=== PATIENT | female | born 1985 | race Caucasian/White ===

== ENCOUNTER 2020-06-28 12:33 | Emergency (ER) | payer BC, SELFPAY ==
[2020-06-28] VITALS (12 sets, daily range): BP systolic 118–135; BP diastolic 73–91; PULSE 75–99; RESP 11–25; TEMP 36.2; O2SAT 97–100
--- NOTE | ~2020-06-28 | US_ITS ---
EXAMINATION: US OB <= 14 weeks fetus DATE: 06/28/2020 13:58 INDICATION: Nausea, vomiting and cramping. TECHNIQUE: Real-time transabdominal obstetric ultrasound. FINDINGS: No prior studies for comparison. The uterus measures 13.7 x 5.9 x 2.3 cm. There is an intrauterine gestational sac, with pole id entified. The crown rump length measures 6.4 cm, which correlates with a estimated gestational age o f 12 weeks 6 days. heart tones are identified measuring 158 BPM. The ovaries are normal. IMPRESSION: 1. SL IUP with an EGA of 12 weeks, 6 days (EDC by current ultrasound of 01/04/2021). Reviewed, dictated and finalized at location B. IMPRESSION: 1. SL IUP with an EGA of 12 weeks, 6 days (EDC by current ultrasound of 021).
[2020-06-28 14:01] LABS: Basophils Percent Auto 0.1 % (0.2-1.2); Eosinophils Percent Auto 0.3 % (0-4.4); Hematocrit 40.9 % (37.0-47.0); Hemoglobin 13.4 g/dL (12.0-15.0); Immature Granulocyte Absolute 0.05 K/mm3 (0.00-0.031); Immature Granulocyte Percent A 0.3 % (0-0.5); Lymphocytes Percent Auto 17.6 % (18.3-44.2); Mean Corpuscular HGB Conc 32.8 g/dl (32-36); Mean Corpuscular Hemoglobin 26.9 pg (26-34); Mean Corpuscular Volume 82.1 fl (80-100); Mean Platelet Volume 10.3 fl (7.4-10.4); Monocytes Absolute Auto 0.7 K/mm3 (0.1-0.6); Monocytes Percent Auto 4.9 % (2.6-8.5); Neutrophils Absolute Auto 11.3 K/mm3 (1.3-6.7); Neutrophils Percent Auto 76.8 % (45.5-73.1); Platelet Count Result 390 k/mm3 (150-375); Red Blood Count 4.98 M/mm3 (4.2-5.4); Red Cell Distribution Width 14.8 % (11.5-14.5); White Blood Count 14.7 K/mm3 (4.5-10.0)
[2020-06-28] MEDS: METOCLOPRAMIDE HCL INJ 10 MG/2 ML VIAL IV PUSH (14:01)
[2020-06-28] MEDS: DEXTROSE 5%/0.9% SOD CHL 1,000 ML 999 ML IV CONT (14:01)
[2020-06-28 14:13] LABS: Alanine Aminotransferase 13 U/L (4-35); Albumin Level 4.2 g/dL (3.5-5.1); Alkaline Phosphatase 111 U/L (38-126); Anion Gap 9 mmol/L (8-16); Aspartate Amino Transferase 24 U/L (14-36); Bilirubin,Total 0.4 mg/dL (0.2-1.3); Blood Urea Nitrogen 10 mg/dL (7-17); Calcium 9.3 mg/dL (8.4-10.2); Carbon Dioxide 23 mmol/L (22-30); Chloride 105 mmol/L (98-107); Estimated CRCL calculation 113 ml/min; Estimated Glomerular Filt Rate > 60; Glucose 85 mg/dL (65-105); Potassium 3.8 mmol/L (3.4-5.0); Sodium 137 mmol/L (137-145)
[2020-06-28 14:43] LABS: Thyroid Stimulating Hormone 0.846 uIU/mL (0.465-4.680)
[2020-06-28 14:46] LABS: Add Urine Microscopic? YES; Appearance Urine Cloudy (Clear); Bilirubin Urine Negative (Negative); Blood Urine Negative (Negative); Color Urine Amber (Yellow); Glucose Urine UA Negative (Negative); Ketones Urine 2+ mg/dL (Negative); Leukocyte Esterase Ur 2+ LEU/UL (Negative); Mucus Urine Heavy /lpf; Nitrate Urine Negative (Negative); Protein Urine 2+ mg/dL (Negative); Squamous Epithelial Cell Urine Many /hpf (Few); WBC Urine 31-50 /hpf
--- NOTE | 2020-06-28 15:10 | ED.GENADULT ---
HPI - General Adult General Chief complaint: Nausea/Vomiting/Diarrhea Stated complaint: n/v/12 weeks Time Seen by Provider: 06/28/20 12:41 Source: patient Mode of arrival: ambulatory Limitations: no limitations History of Present Illness HPI narrative: Patient presents with chief complaint of nausea and vomiting that began on Wednesday. Patient states she is a IVF patient and is 12 weeks . Patient is a G2, P1. She states her CORPORATE AUDITOR is Dr. Woods. Patient reports that beginning Wednesday she had nausea and multiple episodes of vomiting. Patient states she has not had issues with vomiting throughout her first trimester. Patient reports some mild cramping over her lower pelvic area. She denies any vaginal bleeding or contraction-like symptoms. Patient denies fever, chills, cough, shortness of breath, headache. Patient denies any urinary symptoms or abdominal pain. Related Data Home Medications Medication Instructions Recorded Confirmed ergocalciferol (vitamin D2) 06/28/20 levothyroxine 06/28/20 metformin mg PO 06/28/20 [id number] fum-folic [id number] pkg PO 06/28/20 [Daily ] Allergies Allergy/AdvReac Type Severity Reaction Status Date / Time cephalexin Allergy Intermediate Rash Verified 06/28/20 12:54 Review of Systems Review of Systems: Narrative: CONSTITUTIONAL: Denies fever, chills, or sweats. EYES: Denies visual changes, redness, or discharge. ENT: Denies rhinorrhea, congestion, sore throat, or otalgia. CARDIOVASCULAR: Denies chest pain, palpitations, or edema. RESPIRATORY: Denies cough or dyspnea. GASTROINTESTINAL: Reports nausea and vomiting denies abdominal pain or diarrhea. GENITOURINARY: Denies dysuria or hematuria. SKIN: Denies rash or itching. MUSCULOSKELETAL: Denies back pain, joint pain, or myalgia. NEUROLOGIC: Denies headache, numbness, dizziness, or weakness. PSYCHIATRIC: Denies anxiety or depression. Exam Narrative: Exam Narrative: GENERAL: Well-appearing, well-nourished. Not ill or toxic. HEAD: Normocephalic, atraumatic. EYES: PERRLA and EOMI. ENT: Nares clear, no rhinorrhea or epistaxis. Mucous membranes moist. Oropharynx without tonsillar hypertrophy exudate or other lesions. Bilateral TMs pearly villanueva nonbulging NECK: Supple. No adenopathy or masses. No vertebral tenderness or loss of ROM. CHEST: Clear to auscultation. No respiratory distress. No wheezes rales or rhonchi HEART: Regular rate and rhythm. Normal peripheral pulses. ABDOMEN: Soft, nontender, nondistended, normal active bowel sounds. No bruises noted. EXTREMITIES: No acute changes in ROM. No edema. SKIN: Warm, dry, no rash. NEURO: No focal deficits. Alert and oriented x3. PSYCH: Normal mood and affect. Course Vital Signs Vital signs: Vital Signs Temperature 97.1 F L 06/28/20 12:42 Pulse Rate 95 06/28/20 12:42 Respiratory Rate 16 06/28/20 12:42 Blood Pressure 135/91 H 06/28/20 12:42 Pulse Oximetry 100 06/28/20 12:42 Temperature 97.1 F L 06/28/20 12:42 Pulse Rate 86 06/28/20 14:02 Respiratory Rate 16 06/28/20 14:02 Blood Pressure 120/81 06/28/20 13:31 Pulse Oximetry 98 06/28/20 14:02 Medical Decision Making [facility] Narrative Medical decision making narrative: Patient not ill or toxic in appearance. Patient has not been having persistent vomiting emergency department. Patient has been able to ambulate without difficulty. Her vital signs are stable. Patient's ultrasound is normal. Patient does not have vaginal bleeding cramping or signs of contractions. Patient will be treated for urinary tract infection and has been hydrated. Patient will prescribe Reglan. Patient instructed to follow-up with her CORPORATE AUDITOR for your recheck to make sure urinary tract infection has cleared. Patient strict to return to emergency department she has any emergent symptoms. Vital Signs Vital Signs: Vital Signs Temperature 97.1 F L 06/28/20 12:42 Pulse Rate 95 06/28/20 12
== END 2020-06-28 15:54 | disposition home or self-care (01) ==
PROVIDERS: Physician Assistant; Emergency Provider Emergency Medicine; PCP Obstetrics & Gynecology Gynecology
DX: O23.41 Unspecified infection of urinary tract in pregnancy, first trimester (principal); Z3A.12 12 weeks gestation of pregnancy
CPT/HCPCS: 36415; 76801; 80053; 81001; 84443; 85025; 87086; 96361; 96374; 99284; J2765; J7042

== ENCOUNTER 2020-08-28 04:47 | Emergency (ER) | payer BC, SELFPAY ==
[2020-08-28 04:51] VITALS: BP 120/68; PULSE 88; RESP 16; TEMP 36.7; O2SAT 99
--- NOTE | 2020-08-28 05:01 | ED.URI ---
HPI - URI/Sore Throat General Chief Complaint: Upper Respiratory Infection Stated Complaint: sinus problem and now has ear pain Time Seen by Provider: 08/28/20 05:00 Source: patient Mode of arrival: ambulatory Limitations: no limitations History of Present Illness HPI Narrative: Patient is a 34-year-old female complaining of left ear pain, felt something pop, after she blew her nose this morning. Patient states that she has been having sinus congestion for the past few days. Patient denies any trauma to the ear. Patient denies any headache, ear discharge, cough, fever or chills. Patient states that she is . Related Data Home Medications Medication Instructions Recorded Confirmed ergocalciferol (vitamin D2) 06/28/20 08/27/20 levothyroxine 06/28/20 08/27/20 [id number] fum-folic ac-om3 pkg PO 06/28/20 08/27/20 [Daily ] aspirin 81 mg chewable tablet 81 mg PO DAILY 07/09/20 08/27/20 Allergies Allergy/AdvReac Type Severity Reaction Status Date / Time cephalexin Allergy Intermediate Rash Verified 08/27/20 09:27 Review of Systems Review of Systems: All systems reviewed & are unremarkable except as noted in HPI and below PMFSH Past Medical History Medical History Environmental allergies History of vaginal delivery Hypothyroidism PCOS (polycystic ovarian syndrome) Surgical History Surgical History History of placement of ear tubes Hx of tonsillectomy Family History Family History Grandparent Breast cancer Acute myocardial infarction Social History Social History Smoking status: Never smoker Smoking end date: 04/05/12 Alcohol intake: former Substance use: never Exam Const: General: healthy appearing, no acute distress and alert Orientation/consciousness: patient oriented x3 HENMT: Head: normal to inspection Ears: TM normal on the right, EAC's normal and TM abnormal (Tympanic membrane intact) dull and with fluid behind the TM General nose exam: Nasal discharge present and Other nasal findings present (Erythematous boggy swollen nasal turbinates) Face and sinus: normal facial exam and no sinus tenderness Mouth: Yes Normal oral and palatal mucosa present and Yes moist mucous membranes Eyes: Conjunctivae: conjunctivae normal Neck: Neck: normal visual inspection Resp: Effort & Inspection: normal respiratory effort Psych: Mental Status: mental status grossly normal Affect: normal affect Attitude: cooperative Course Vital Signs Vital signs: Vital Signs Temperature 36.7 C 08/28/20 04:51 Pulse Rate 88 08/28/20 04:51 Respiratory Rate 16 08/28/20 04:51 Blood Pressure 120/68 08/28/20 04:51 Pulse Oximetry 99 08/28/20 04:51 Temperature 36.7 C 08/28/20 04:51 Pulse Rate 88 08/28/20 04:51 Respiratory Rate 16 08/28/20 04:51 Blood Pressure 120/68 08/28/20 04:51 Pulse Oximetry 99 08/28/20 04:51 MDM - URI/Sore Throat Differential Diagnosis Differential diagnosis: Likely upper respiratory infection, sinusitis and viral infection Discharge Plan Discharge Clinical Impression: Acute pain of left ear Patient Disposition: Home, Self-Care Condition: Improved Instructions: Barotrauma (ED) Additional Instructions: Follow-up with your SECOND [employer]IDE FARE COLLECTOR Prescriptions: No Action aspirin 81 mg tablet,chewable 81 mg PO DAILY RF: 0 ondansetron HCl [Zofran] 4 mg tablet 4 mg PO Q6H PRN (Reason: nausea and vomiting) Qty: 2 RF: 0 levothyroxine 75 mcg tablet RF: 0 ergocalciferol (vitamin D2) 1,250 mcg (50,000 unit) capsule RF: 0 Daily [phone] mg-mcg-mg Combo Pack PO RF: 0 Follow-up/Referrals: CAROLE,WILLIAM Campbell NP-C [Primary Care Provider] - 08/29/20 Time of Dispositi
--- NOTE | 2020-08-28 05:09 | PC.NURSE ---
Pt presents to ED with complaints of upper respiratory infection and left ear pain. Pt states she has not been feeling well for a few days. Pt rates pain to ear 8/. Pain last treated with tylenol at 2300 and ibuprofen at 0200. States she was blowing her nose when suddenly her left ear popped and she can no longer hear; denies drainage from ear. Pt is alert and oriented t x4 and in no obvious distress with spouse at bedside. Vitals anthony stable and pt in no obvious distress at this time. Pt advised to press call button for assistance.
--- NOTE | 2020-08-28 05:18 | PC.NURSE ---
EDMD presented to bedside.
--- NOTE | 2020-08-28 05:20 | PC.NURSE ---
Pt provided specimen cup for urine.
[2020-08-28 05:42] VITALS: BP 120/68; PULSE 88; RESP 16; TEMP 36.7; O2SAT 98
[2020-08-28 05:45] VITALS: O2SAT 98
[2020-08-28 05:46] VITALS: BP 120/68; PULSE 88; RESP 16; O2SAT 98
== END 2020-08-28 05:47 | disposition home or self-care (01) ==
PROVIDERS: Emergency Provider Emergency Medicine; PCP Nurse Practitioner
DX: H92.02 Otalgia, left ear (principal); E03.9 Hypothyroidism, unspecified
CPT/HCPCS: 99281

== ENCOUNTER 2020-11-23 11:52 | Outpatient (CLI) | payer BC, SELFPAY ==
--- NOTE | ~2020-11-23 | US_ITS ---
US OB limited DATE: 11/23/2020 12:44 INDICATION: In vitro fertilization . TECHNIQUE: Real-time imaging and Doppler analysis COMPARISON: 06/28/2020 obstetrical ultrasound FINDINGS: The fetus is in vertex presentation, longitudinal lie. heart rate of 136 bpm The placenta is fundal. There is a subjectively normal amount of amniotic fluid. Amniotic fluid index measures 12.8 cm. (5th percentile RAYMUNDO: 8.3 cm; 95th percentile RAYMUNDO: 24.5 cm.) IMPRESSION: Amniotic fluid index measures 12.8 cm. (5th percentile RAYMUNDO: 8.3 cm; 95th percentile RAYMUNDO: 24.5 cm.) Reviewed, dictated and finalized at Location A. Reviewed, dictated and finalized at location A.
[2020-11-23 12:29] VITALS: BP 113/69; PULSE 76
== END 2020-11-23 11:53 | disposition home or self-care (01) ==
PROVIDERS: Visit Provider Obstetrics & Gynecology
DX: O09.819 Supervision of pregnancy resulting from assisted reproductive technology, unspecified trimester (principal); Z3A.00 Weeks of gestation of pregnancy not specified
CPT/HCPCS: 59025; 76815

== ENCOUNTER 2021-01-07 11:24 | Outpatient (RCR) | payer BC, SELFPAY ==
[2020-12-21 10:00] VITALS: BP 111/75; PULSE 95
[2020-12-28 13:19] VITALS: BP 106/71; PULSE 75
[2021-01-04 14:52] VITALS: BP 106/71; PULSE 75
--- NOTE | ~2021-01-07 | US_ITS ---
EXAMINATION: US OB limited DATE: 11/30/2020 09:33 INDICATION: In vitro fertilization. Assess amniotic fluid index during third trimester . TECHNIQUE: Real-time ultrasound of the pelvis was performed. The interpreting radiologist was not pre sent for the study. COMPARISON: None. FINDINGS: There is a single living fetus in vertex presentation. The placenta is anterior. heart rate is 150 beats per minute (bpm). The amniotic fluid index is 13.7 cm, which is normal (5th%-95%: 8.1-24.8 cm at 34 weeks estimated gestational age). IMPRESSION: 1. Single living fetus in vertex presentation with heart rate of 150 bpm. 2. Normal amniotic fluid index of 13.7 cm. Reviewed, dictated and finalized at location A. IMPRESSION: 1. Single living fetus in vertex presentation with heart rate of 150 bpm . 2. Normal amniotic fluid index of 13.7 cm.
--- NOTE | ~2021-01-07 | US_ITS ---
EXAMINATION: US OB limited EXAM DATE: 12/28/2020 13:10 INDICATION: RAYMUNDO, IVF . 3rd trimester. TECHNIQUE: Pelvic obstetrical transabdominal sonogram was performed by a technologist. There are mu ltiple grayscale and Doppler images available for interpretation. Comparison is made to prior examina tion from 12/21/2020. FINDINGS: There is a single fetus identified in vertex presentation with a heart rate of 141 beats pe r minute. The placenta is located in the anterior position. There is no sonographic evidence of retr oplacental hemorrhage identified. The amniotic fluid index is 17.8 centimeters, which is normal. IMPRESSION: 1. Single fetus in vertex presentation with heart rate 141 beats per minute. 2. Normal RAYMUNDO 17.8 cm. Reviewed, dictated and finalized at location A.
--- NOTE | ~2021-01-07 | US_ITS ---
US OB limited 01/04/2021 13:45 Indication: Evaluate amniotic fluid index. Procedure: High-resolution Limited obstetrical ultrasound Comparison: 12/28/2020 Findings: There is a single living intrauterine in vertex presentation. Placenta is fundal without previa. Amniotic fluid index is normal measuring 17 cm (normal range for gestational age is 7 .2-22.6 cm). heart rate is 121 BPM. Impression: 1: Single living intrauterine in vertex presentation. 2: Normal RAYMUNDO measures 17 cm. Reviewed, dictated and finalized at location A. Impression: 1: Single living intrauterine in vertex presentation. 2: Normal RAYMUNDO measures 17 cm.
--- NOTE | ~2021-01-07 | US_ITS ---
EXAMINATION: US OB limited DATE: 12/21/2020 10:00 INDICATION: Amniotic fluid index assessment, third trimester TECHNIQUE: Real-time ultrasound of the pelvis was performed. The interpreting radiologist was not pre sent for the study. COMPARISON: 11/22/2020 FINDINGS: There is a single living fetus in vertex presentation. The placenta is fundal/anterior. Fet al cardiac activity and movement are noted. heart rate is 121 beats per minute (bpm). The amniotic fluid index is 11.4 cm which is normal. IMPRESSION: 1. Single living fetus in vertex presentation. 2. Normal amniotic fluid index. Reviewed, dictated and finalized at location A.
[2021-01-07 13:41] VITALS: BP 122/82; PULSE 82
--- NOTE | 2021-02-03 16:00 | PM.OBDSVD ---
DS: Admitting Diagnosis Discharge Date Jan 12, 2021. Admitting Diagnosis Medical induction of labor DS: Discharge Diagnosis Discharge Diagnosis (1) Delivery normal: Code(s): O80 - Encounter for full-term uncomplicated delivery Status: Acute (2) Elective induction of labor planned: Status: Acute (3) hemorrhage: Code(s): O72.1 - Other immediate hemorrhage Status: Acute OB - DS: Summary Hospital Course Hospital Course: Patient admitted on Jan 12 for medical induction of labor. She had a spontaneous vaginal delivery complicated by hemorrhage. She did get a currettage which resolved the bleeding. Post she did well. She had asymptomatic anemia. She was started on iron supplement. On day two she was doing well. Ambulating without difficulty. Lochia was mild. Her hemoglobin was 7.3. On day 2 she was doing well. No hypovolemic symptoms. She was doing well and discharged home with discharge precautions on 01/12/2021. OB Procedures : NST and Ultrasound OB Procedures Intrapartum: Spontaneous Vag Delivery OB Procedures: : Curettage and Antibiotics (prophylaxis) Peripartum Data Infant Delivery Method: Natural Vaginal Laceration Description: Vaginal - 1st Degree complications: uterine atony and retained placenta Status at Discharge Functional status at discharge: independent ambulation Time Spent with Patient Time attestation: Total time spent providing and/or coordinating discharge services: Exam Const: General: cooperative Orientation/consciousness: oriented to person, oriented to place and oriented to time HENMT: General nose exam: Normal external nose present Eyes: General: appearance normal, both eyes and all related structures Resp: Effort & Inspection: normal respiratory effort GI: Inspection: normal to inspection : Other: fundus firm nontender below umbilicus Skin: General skin exam: normal color Neuro: General: oriented to person, oriented to place and oriented to time Extrem: General: normal to inspection and no calf tenderness Psych: Appearance: grossly normal Mental Status: mental status grossly normal Discharge Plan Departure Attending Physician: Pepe Amaro Consulting providers: Cyrus Stein Prescriptions: No Action aspirin 81 mg tablet,chewable 81 mg PO DAILY RF: 0 famotidine [Pepcid] 20 mg tablet 20 mg PO DAILY Qty: 14 RF: 0 nitrofurantoin monohyd/m-cryst [Macrobid] 100 mg capsule 100 mg PO Q12H 5 Days Qty: 10 RF: 0 ergocalciferol (vitamin D2) [Vitamin D2] 1,250 mcg (50,000 unit) capsule 1 unit PO DAILY RF: 0 levothyroxine 75 mcg tablet 75 mcg PO DAILY Qty: 30 RF: 1 Discharge Instructions: Pelvic rest for 4-6 weeks. May take over the counter Ibuprofen or Tylenol for pain. Call if saturating more than a pad an hour, leg redness, pain and swelling, temperature>100.4. No strenuous activity.
== END 2021-02-17 09:26 | disposition home or self-care (01) ==
LOC: ANHOBOP 11:24
PROVIDERS: Referring Provider Obstetrics & Gynecology; Visit Provider Obstetrics & Gynecology
DX: O99.283 Endocrine, nutritional and metabolic diseases complicating pregnancy, third trimester (principal); E03.9 Hypothyroidism, unspecified; Z3A.34 34 weeks gestation of pregnancy
CPT/HCPCS: 59025; 76815

== ENCOUNTER 2021-01-10 12:11 | Inpatient (IN) | payer BC, SELFPAY ==
[2021-01-10] VITALS (137 sets, daily range): BP systolic 88–217; BP diastolic 17–186; PULSE 58–221; TEMP 36.1–36.9; O2SAT 89–100; BMI 33.7
--- NOTE | 2021-01-10 12:57 | LDADM ---
This patient, Paulette Cisneros, was admitted to Labor/Delivery/Recovery 107 on 01/10/21 at 12:11. Plans for labor, pain management and were discussed with patient. Patient/family oriented to hospital policies and general routines including ID bracelet, bed and alarms, visiting hours, pain management, procedures, bathroom and other care routines, personal items, smoking policy, room service/diet and guest tray routines, infant security routines, and visiting hours. Patient/Family are encouraged to report perceived risks to care and to ask questions if they do not understand what they are told or what they should do. See OBIX for further documentation.
[2021-01-10 13:04] LABS: Basophils Percent Auto 0.2 % (0.2-1.2); Eosinophils Absolute Auto 0.1 K/mm3 (0-0.3); Eosinophils Percent Auto 0.6 % (0-4.4); Hematocrit 33.9 % (37.0-47.0); Hemoglobin 10.8 g/dL (12.0-15.0); Immature Granulocyte Absolute 0.05 K/mm3 (0.00-0.031); Immature Granulocyte Percent A 0.4 % (0-0.5); Lymphocytes Absolute Auto 2.46 K/mm3 (0.9-3.2); Lymphocytes Percent Auto 19.9 % (18.3-44.2); Mean Corpuscular HGB Conc 31.9 g/dl (32-36); Mean Corpuscular Hemoglobin 24.6 pg (26-34); Mean Corpuscular Volume 77.2 fl (80-100); Mean Platelet Volume 9.7 fl (7.4-10.4); Monocytes Absolute Auto 0.7 K/mm3 (0.1-0.6); Monocytes Percent Auto 5.7 % (2.6-8.5); Neutrophils Absolute Auto 9.1 K/mm3 (1.3-6.7); Neutrophils Percent Auto 73.2 % (45.5-73.1); Platelet Count Result 369 k/mm3 (150-375); Red Blood Count 4.39 M/mm3 (4.2-5.4); Red Cell Distribution Width 15.4 % (11.5-14.5); White Blood Count 12.4 K/mm3 (4.5-10.0)
[2021-01-10] MEDS: OXYTOCIN 30 UNITS/NS 500 ML 30 UNITS/500 ML BAG IV CONT (13:17)
[2021-01-10] MEDS: LACTATED RINGERS 1,000 ML 125 ML IV CONT ×2 (13:18→14:05)
--- NOTE | 2021-01-10 15:16 | WPDANESEPPF ---
Anes - Initial Pre Proc Eval Date/Time: 01/10/21 15:16 Surgeon: Pepe Amaro MD Pre Op Diagnosis: Induction of Labor Patient Data Age: 35 Gender: F Height: 1.65 m Weight: 92 kg Last Vital Signs Temp 36.1 C L 01/10/21 14:02 Pulse 83 01/10/21 15:01 BP 111/73 01/10/21 15:01 Pulse Ox 100 01/10/21 15:14 Allergies Allergy/AdvReac Type Severity Reaction Status Date / Time No Known Allergies Allergy Verified 01/10/21 13:04 Home Medications Medication Instructions Recorded Confirmed Type ergocalciferol (vitamin D2) 1 unit PO DAILY 06/28/20 01/10/21 History [Vitamin D2] levothyroxine 75 mcg PO DAILY 06/28/20 01/10/21 History aspirin 81 mg chewable tablet 81 mg PO DAILY 07/09/20 01/10/21 History Laboratory Tests 01/10/21 01/10/21 01/10/21 12:37 12:37 12:37 WBC 12.4 K/mm3 H K/mm3 (4.5-10.0) RBC 4.39 M/mm3 M/mm3 (4.2-5.4) Hgb 10.8 g/dL L g/dL (12.0-15.0) Hct 33.9 % L % (37.0-47.0) MCV 77.2 fl L fl (80-100) MCH 24.6 pg L pg (26-34) MCHC 31.9 g/dl L g/dl (32-36) RDW 15.4 % H % (11.5-14.5) Plt Count 369 k/mm3 k/mm3 (150-375) MPV 9.7 fl fl (7.4-10.4) Immature Gran % (Auto) 0.4 % % (0-0.5) Neut % (Auto) 73.2 % H % (45.5-73.1) Lymph % (Auto) 19.9 % % (18.3-44.2) Tama % (Auto) 5.7 % % (2.6-8.5) Eos % (Auto) 0.6 % % (0-4.4) Baso % (Auto) 0.2 % % (0.2-1.2) Lymph # (Auto) 2.46 K/mm3 K/mm3 (0.9-3.2) Tama # (Auto) 0.7 K/mm3 H K/mm3 (0.1-0.6) Eos # (Auto) 0.1 K/mm3 K/mm3 (0-0.3) Baso # (Auto) 0.0 K/mm3 K/mm3 (0.0-0.1) Abs Immat Gran (auto) 0.05 K/mm3 H K/mm3 (0.00-0.031) Absolute Neuts (auto) 9.1 K/mm3 H K/mm3 (1.3-6.7) Absolute Nucleated RBC 0.0 K/mm3 K/mm3 (0.0-0.012) Nucleated RBC % 0.0 % % (0.0-0.2) RPR Pending Blood Type B Positive Antibody Screen Negative Patient hx anesthesia problems: none Family hx anesthesia problems: none Results Review: All pre-operative results and documents have been reviewed as part of the pre-operative evaluation. [facility] Past Medical History Medical History Environmental allergies History of vaginal delivery Hypothyroidism PCOS (polycystic ovarian syndrome) Surgical History Surgical History History of placement of ear tubes Hx of tonsillectomy Family History Family History Grandparent Breast cancer Acute myocardial infarction Social History Social History Smoking status: Former smoker Smoking end date: 04/05/12 Alcohol intake: former Alcohol use details: Not since Substance use: never Spiritual care concerns: No Anes - Eval Final PreProcedure Day of Procedure 01/10/21 15:16 Patient weight: obese Heart: regular rate and rhythm Lungs: clear to auscultation Neurological: alert and oriented ASA classification: II Emergent: no Anesthetic plan: proceed Anesthesia type and monitoring: regional epidural and standard monitoring Results Review: All pre-operative results and documents have been reviewed as part of the pre-operative evaluation. Informed Consent: The patient's anesthetic plan and its attendant risks and benefits were discussed with the patient/family/POA. Questions were solicited and answers provided to the satisfaction of the patient/family/POA.
--- NOTE | 2021-01-10 15:50 | PM.IMHP ---
H&P: HPI History of Present Illness Date/Time: 01/10/21 15:50 40 w 1d based on EDC by IVF conception. PNC significant for IVF conception. Labs reviewed. GBS neg. Chief Complaint: Induction of labor Review of Systems Review of Systems: All systems reviewed & are unremarkable except as noted in HPI and below Constitutional: Constitutional: Reports no additional constitutional complaints and Denies headache(s) Eyes: Eyes: Denies spots in vision ENT: Reports system reviewed and no additional complaints, except as documented and Denies headache(s) Cardiovascular: Cardiovascular: Denies chest pain and Denies dyspnea Respiratory: Respiratory: Denies dyspnea Gastrointestinal: Gastrointestinal: Reports no additional gastrointestinal complaints Genitourinary: Genitourinary: Reports amenorrhea Musculoskeletal: Musculoskeletal: Reports no additional musculoskeletal complaints Integumentary/Breasts: Skin/Breast: Denies breast mass and Denies rash Neurologic: Denies headache(s) Psychiatric: Psychiatric: Reports no additional psychiatric complaints PMFSH Past Medical History Medical History Environmental allergies History of vaginal delivery Hypothyroidism PCOS (polycystic ovarian syndrome) Surgical History Surgical History History of placement of ear tubes Hx of tonsillectomy Family History Family History Grandparent Breast cancer Acute myocardial infarction Social History Social History Smoking status: Former smoker Smoking end date: 04/05/12 Alcohol intake: former Alcohol use details: Not since Substance use: never Spiritual care concerns: No Meds Home Medications and Allergies Home Medications Medication Instructions Recorded Confirmed Type ergocalciferol (vitamin D2) 1 unit PO DAILY 06/28/20 01/10/21 History [Vitamin D2] levothyroxine 75 mcg PO DAILY 06/28/20 01/10/21 History aspirin 81 mg chewable tablet 81 mg PO DAILY 07/09/20 01/10/21 History Allergies Allergy/AdvReac Type Severity Reaction Status Date / Time No Known Allergies Allergy Verified 01/10/21 13:04 Vital Signs Vital Signs - 24 hr 01/10/21 12:36 01/10/21 12:46 01/10/21 13:01 Temperature Pulse Rate 102 H 79 86 Blood Pressure 119/83 127/76 117/79 Pulse Oximetry 01/10/21 13:16 01/10/21 13:25 01/10/21 13:31 Temperature 97.5 F L Pulse Rate 81 72 Blood Pressure 119/81 121/71 Pulse Oximetry 01/10/21 13:46 01/10/21 13:52 01/10/21 13:53 Temperature Pulse Rate 70 78 Blood Pressure 130/73 135/86 Pulse Oximetry 100 01/10/21 13:55 01/10/21 13:57 01/10/21 13:59 Temperature Pulse Rate 82 84 83 Blood Pressure 133/80 131/83 121/78 Pulse Oximetry 100 01/10/21 14:01 01/10/21 14:02 01/10/21 14:03 Temperature 96.9 F L Pulse Rate 89 87 Blood Pressure 155/93 H 123/78 Pulse Oximetry 100 01/10/21 14:05 01/10/21 14:07 01/10/21 14:09 Temperature Pulse Rate 86 94 83 Blood Pressure 136/88 113/72 115/67 Pulse Oximetry 100 01/10/21 14:11 01/10/21 14:12 01/10/21 14:14 Temperature Pulse Rate 70 77 Blood Pressure 100/64 89/68 L Pulse Oximetry 100 01/10/21 14:15 01/10/21 14:17 01/10/21 14:19 Temperature Pulse Rate 95 76 66 Blood Pressure 109/64 109/63 119/64 Pulse Oximetry 99 01/10/21 14:21 01/10/21 14:22 01/10/21 14:23 Temperature Pulse Rate 65 81 Blood Pressure 115/65 114/69 Pulse Oximetry 99 01/10/21 14:25 01/10/21 14:27 01/10/21 14:29 Temperature Pulse Rate 89 64 84 Blood Pressure 113/69 117/63 112/66 Pulse Oximetry 100 01/10/21 14:30 01/10/21 14:31 01/10/21 14:33 Temperature Pulse Rate 66 68 Blood Pressure 113/66 115/70 Pulse Oximetry 100 10/0
--- NOTE | 2021-01-10 15:59 | P.PNOB_ITS ---
OB - PN: Subj Subjective Date/time seen: 01/10/21 1330 fht 145 Cat 1, occasional variable irreg ctx AROM clear 1330 cervix 3/-2. OB - PN: Obj Data Labs CBC & Chem 7: 01/10/21 12:37 Labs: Laboratory Results - last 24 hr 01/10/21 01/10/21 12:37 12:37 WBC 12.4 H RBC 4.39 Hgb 10.8 L Hct 33.9 L MCV 77.2 L MCH 24.6 L MCHC 31.9 L RDW 15.4 H Plt Count 369 MPV 9.7 Immature Gran % (Auto) 0.4 Neut % (Auto) 73.2 H Lymph % (Auto) 19.9 Caroline % (Auto) 5.7 Eos % (Auto) 0.6 Baso % (Auto) 0.2 Lymph # (Auto) 2.46 Caroline # (Auto) 0.7 H Eos # (Auto) 0.1 Baso # (Auto) 0.0 Abs Immat Gran (auto) 0.05 H Absolute Neuts (auto) 9.1 H Absolute Nucleated RBC 0.0 Nucleated RBC % 0.0 Blood Type B Positive Antibody Screen Negative OB - PN A/P Time Spent With Patient Time: Total time spent is greater than 50% in coordination of care (as documented) at patient's floor/unit and/or counseling patient:
--- NOTE | 2021-01-10 17:06 | P.PCNOB_ITS ---
OB - Delivery Note Procedure Delivery date: 01/10/21 Procedure: spontaneous vaginal delivery Intrapartal events: None Induction method: none and per pitocin protocol Delivery augmentation: rupture of membranes Delivery monitor: external FHT and internal uterine Route of delivery: Laceration Description: Vaginal - 1st Degree Delivery repair: vicryl (3.0 vicryl) Specimen: No Quantitative Blood Loss (ml): 200 Anesthesia type: Epidural Disposition: floor Complications: None Narrative: Patient admitted for [facility] elective on 01/10/21. She was started on Pitocin per induction protocol. She had assisted rupture of membranes at 1330 clear. She was 3 cm. She progressed to active labor. She requested epidural which was placed. She did have episode of recurrent moderate early decels and she dilated rapidly from 7-9. The repetitive variables improved. She did pushed approximately 3-4 times, late decels noted. 's head delivered, in MARGE presentation. Tight nuchal cord surgically reduced. The rest of the infant was delivered. Nose mouth suctioned with bulb. Terminal meconium noted. Infant placed on maternal abdomen, crying with massage. Placenta delivered spontaneous and intact. She sustained a first degree vaginal laceration at introitus and repaired with 3.0 vicryl. EBL 200cc. Sponge count correct. Patient tolerated procedure well. [place] Baby Date of : 01/10/21 Time of : 16:39 Weeks of gestation at delivery: 40 Infant gender: Male Weight (pounds): 7 Weight (ounces): 7 presentation: vertex position: Left Occiput Anterior Placenta delivery description: Spontaneous cord vessel description: 3 Vessels, Nuchal Cord and Tight score one minute: 8 score five minutes: 9
[2021-01-10] MEDS: OXYTOCIN 30 UNITS/NS 500 ML 30 UNITS/500 ML BAG 125 UNITS IV CONT (18:45)
[2021-01-10] MEDS: LACTATED RINGERS 1,000 ML 200 ML IV CONT (18:45)
[2021-01-10] MEDS: miSOPROStol 200 MCG TABLET 800 MCG RECTAL (18:49)
[2021-01-10 19:18] LABS: Basophils Percent Auto 0.1 % (0.2-1.2); Eosinophils Percent Auto 0.2 % (0-4.4); Hematocrit 32.7 % (37.0-47.0); Hemoglobin 10.3 g/dL (12.0-15.0); Immature Granulocyte Absolute 0.09 K/mm3 (0.00-0.031); Immature Granulocyte Percent A 0.4 % (0-0.5); Lymphocytes Absolute Auto 2.38 K/mm3 (0.9-3.2); Lymphocytes Percent Auto 11.7 % (18.3-44.2); Mean Corpuscular HGB Conc 31.5 g/dl (32-36); Mean Corpuscular Hemoglobin 24.8 pg (26-34); Mean Corpuscular Volume 78.6 fl (80-100); Mean Platelet Volume 9.6 fl (7.4-10.4); Monocytes Absolute Auto 1.1 K/mm3 (0.1-0.6); Monocytes Percent Auto 5.6 % (2.6-8.5); Neutrophils Absolute Auto 16.7 K/mm3 (1.3-6.7); Platelet Count Result 377 k/mm3 (150-375); Red Blood Count 4.16 M/mm3 (4.2-5.4); Red Cell Distribution Width 15.4 % (11.5-14.5); White Blood Count 20.3 K/mm3 (4.5-10.0)
[2021-01-10] MEDS: METHYLERGONOVINE MALEATE 0.2 MG/ML VIAL IM (19:42)
--- NOTE | 2021-01-10 19:48 | W.PM.PROC2 ---
Procedure Note - Detailed Date of Procedure 01/10/21 Pre-op Diagnosis 1. hemorrhage 2. Retained placenta Post-op Diagnosis same Procedure Performed [place] Surgeon Pepe Amaro MD Anesthesia MAC and local Indications hemorrhage. Patient had approximately 1400cc and the nurse evacuated some clots and placental fragments from the lower uterine segment. I was called. Attempted manual extraction and there was still fragments and an area posterior fundus that felt adherent and could not get it. She continued to have some bleeding. She was recommended for curretage for retained placenta. Discussed the risk of curretage. Discussed risk of need to go to OR if can't stop bleeding. Questions were answered. Patient agreed. She had been given cytotec. CBC and coags drawn and second IV. Findings Small amount of placenta fragment at the fundus Description of Procedure After informed consent, adequate IV sedation was administered. The speculum was inserted. The single tooth tenaculum placed on cervix. Ultrasound was uterus at lower abdomen and the fundus and uterine cavity were visualized. A straight urinary catheter was used to drain bladder. A large currett was passed and small amount of tissue obtained. A finger like segment was curretted from the fundus and the bleeding decreased. The ultrasound did not show any large tissue in fundus. The lower uterine segment mildly. She was given methergin. The cervix was inspected using ring forceps, no laceration noted. There was a small laceration of vaginal tissue near introitus that was bleeding and hemostasis obtained with figure of eight 3.0 vicryl. Uterus firm below umbilicus. There was a small ooze and a vag packing was placed. Patient tolerated procedure well. EBL during procedure approximately 300cc. That would make her total EBL from delivery and procedure 2695cc. T Estimated Blood Loss 300 Drains No Packing Yes (vaginal packing.) Pathology none sent Complications No immediate complications Condition stable Disposition floor
[2021-01-10 19:52] LABS: Partial Thromboplastin Time 27.3 SECONDS (22.3-36.8); Prothrombin Time 12.8 Seconds (11.1-14.7)
[2021-01-10 19:56] LABS: D Dimer 3.46 ug/mL (<0.48)
[2021-01-10 19:58] LABS: Fibrinogen 257 mg/dl (215-510)
[2021-01-10] MEDS: ceFAZolin 2 GM/D5W 50 ML 2 GM/50 ML BAG IVPB (20:17)
[2021-01-10] MEDS: ONDANSETRON INJ 4 MG/2 ML VIAL IV PUSH (21:04)
[2021-01-10] MEDS: TRANEXAMIC ACID 1,000MG/ISO100 1,000 MG/100 ML BAG 200 MG IVPB ×2 (21:11→22:55)
[2021-01-11 00:13] VITALS: BP 111/67; PULSE 75; RESP 16; TEMP 36.6; O2SAT 98
[2021-01-11] MEDS: ACETAMINOPHEN 325 MG TABLET 650 MG PO (01:54)
[2021-01-11] MEDS: ceFAZolin 2 GM/D5W 50 ML 2 GM/50 ML BAG IVPB ×2 (04:01→12:21)
[2021-01-11 04:13] VITALS: BP 103/63; PULSE 78; RESP 16; TEMP 36.8; O2SAT 99
[2021-01-11 06:09] LABS: Hematocrit 22.6 % (37.0-47.0); Hemoglobin 7.3 g/dL (12.0-15.0)
--- NOTE | 2021-01-11 07:19 | OBPPTRN ---
01/30/2021 at 2348 Patient transferred to post room #287 in wheelchair. Support person present. Oriented to unit, room, information board, rooming in, admission packet and security measures. Patient verbalizes understanding.
[2021-01-11 08:00] VITALS: BP 114/53; PULSE 74; RESP 20; TEMP 37.1; O2SAT 100
[2021-01-11] MEDS: IBUPROFEN 600 MG TABLET PO ×2 (09:20→16:49)
[2021-01-11] MEDS: DOCUSATE SODIUM 100 MG CAPSULE PO ×2 (09:20→16:49)
[2021-01-11] MEDS: POLYSACCHARIDE IRON COMPLEX 150 MG CAPSULE PO ×2 (09:20→16:49)
[2021-01-11] MEDS: MULTIVIT/MIN/PREN/FOL AC/IRON TABLET 1 TAB PO (09:20)
[2021-01-11] MEDS: LEVOTHYROXINE SODIUM 50 MCG TABLET PO (10:52)
--- NOTE | 2021-01-11 11:53 | PM.OBPNVD ---
OB - PN: Subj Subjective Date/time seen: 01/11/21 11:53 She is ambulating well, no lightheadedness, dizziness or chest pain or SOB. Mild lochia. Mild to moderate cramping. Patient comments: pain well controlled, tolerating diet and other (Decreasing lochia.) baby status: doing well and nursing well feeding status: exclusively breast feeding OB - PN: Obj Data Labs CBC & Chem 7: 01/11/21 05:57 Labs: Laboratory Results - last 24 hr 01/10/21 01/10/21 01/10/21 12:37 12:37 19:11 WBC 12.4 H 20.3 H RBC 4.39 4.16 L Hgb 10.8 L 10.3 L Hct 33.9 L 32.7 L MCV 77.2 L 78.6 L MCH 24.6 L 24.8 L MCHC 31.9 L 31.5 L RDW 15.4 H 15.4 H Plt Count 369 377 H MPV 9.7 9.6 Immature Gran % (Auto) 0.4 0.4 Neut % (Auto) 73.2 H 82.0 H Lymph % (Auto) 19.9 11.7 L [place] % (Auto) 5.7 5.6 Eos % (Auto) 0.6 0.2 Baso % (Auto) 0.2 0.1 L Lymph # (Auto) 2.46 2.38 [place] # (Auto) 0.7 H 1.1 H Eos # (Auto) 0.1 0.0 Baso # (Auto) 0.0 0.0 Abs Immat Gran (auto) 0.05 H 0.09 H Absolute Neuts (auto) 9.1 H 16.7 H Absolute Nucleated RBC 0.0 0.0 Nucleated RBC % 0.0 0.0 PT INR APTT Fibrinogen D-Dimer Blood Type B Positive Antibody Screen Negative 01/10/21 01/11/21 19:11 05:57 WBC RBC Hgb 7.3 L D Hct 22.6 L MCV MCH MCHC RDW Plt Count MPV Immature Gran % (Auto) Neut % (Auto) Lymph % (Auto) [place] % (Auto) Eos % (Auto) Baso % (Auto) Lymph # (Auto) [place] # (Auto) Eos # (Auto) Baso # (Auto) Abs Immat Gran (auto) Absolute Neuts (auto) Absolute Nucleated RBC Nucleated RBC % PT 12.8 INR 1.0 APTT 27.3 Fibrinogen 257 D-Dimer 3.46 H Blood Type Antibody Screen OB - PN A/P Assessment and Plan (1) Delivery normal: Code(s): O80 - Encounter for full-term uncomplicated delivery Status: Acute Assessment and Plan: She is doing well. Routine post care. (2) hemorrhage: Code(s): O72.1 - Other immediate hemorrhage Status: Acute Assessment and Plan: Minimal lochia. Asymptomatic anemia. Continue iron supplementation. Continue the prophylactic antibiotic for 24 hour. Plan day: 1 Plan: routine care Comments: Patient doing well. Time Spent With Patient Time: Total time spent is greater than 50% in coordination of care (as documented) at patient's floor/unit and/or counseling patient: Exam Psych: Affect: normal affect Other: Abd: fundus firm below umbilicus, mild to mod tender Perineum: healing Ext: nontender
[2021-01-11 12:00] VITALS: BP 107/65; PULSE 66; RESP 18; TEMP 36.2
--- NOTE | 2021-01-11 12:06 | WPDANLDPN2 ---
Anes-Prog Note L&D Date/Time: 01/11/21 12:06 Comfortable throughout: labor and delivery Neuraxial method: epidural Epidural/Spinal procedure site: clean & non-tender Neuro status: Neuro function grossly intact. Cardiovascular status: normal Respiratory status: normal Airway patency: baseline Mental status: baseline Post-Op hydration status: normal Vital Signs: Last Vital Signs Temp 37.1 C 01/11/21 08:00 Pulse 74 01/11/21 08:00 Resp 20 01/11/21 08:00 BP 114/53 L 01/11/21 08:00 Pulse Ox 100 01/11/21 08:00 Pain score (VAS): 0 I/O: Intake & Output 01/10/21 01/11/21 01/11/21 23:59 07:59 15:59 Intake Total 3250 50 Output Total 2943 Balance 307 50 Post-procedural complaints: none Patient feedback: Patient satisfied with anesthetic care.
[2021-01-11 16:50] VITALS: BP 104/60; PULSE 74; RESP 18; TEMP 36.4
[2021-01-12 07:48] VITALS: BP 103/56; PULSE 71; RESP 16; TEMP 36.3; O2SAT 100
[2021-01-12] MEDS: MULTIVIT/MIN/PREN/FOL AC/IRON TABLET 1 TAB PO (10:11)
[2021-01-12] MEDS: DOCUSATE SODIUM 100 MG CAPSULE PO (10:11)
[2021-01-12] MEDS: IBUPROFEN 600 MG TABLET PO (10:11)
[2021-01-12] MEDS: POLYSACCHARIDE IRON COMPLEX 150 MG CAPSULE PO (10:11)
--- NOTE | 2021-01-12 10:58 | P.PNOB_ITS ---
OB - PN: Subj Subjective Date/time seen: 01/12/21 10:58 No lightheadedness or dizziness. Ambulating well. Patient comments: pain well controlled, tolerating diet and other (Decreasing lochia.) [place] baby status: doing well and nursing well OB - PN: Obj Data Labs CBC & Chem 7: 01/11/21 05:57 OB - PN A/P Plan day: 1 Plan: routine care Comments: Patient doing well. Asymptomatic anemia. On iron therapy. Discharge today. Discharge precautions discussed. Time Spent With Patient Time: Total time spent is greater than 50% in coordination of care (as documented) at patient's floor/unit and/or counseling patient: Exam Const: General: comfortable Eyes: General: appearance normal, both eyes and all related structures Resp: Effort & Inspection: normal respiratory effort Psych: Affect: normal affect Other: Abd: fundus firm below umbilicus, nontender Perineum: healing Ext: nontender
[2021-01-13 06:58] LABS: Rapid Plasma Reagin Non-Reactive (NonReactive)
[2021-01-16 11:20] VITALS: BP 125/77; PULSE 65; RESP 20; TEMP 37.2; O2SAT 100
--- NOTE | 2021-02-12 11:11 | PM.OBDSVD ---
DS: Admitting Diagnosis Discharge Date 01/12/21 Admitting Diagnosis 1. Medical induction of labor DS: Discharge Diagnosis Discharge Diagnosis (1) Delivery normal: Code(s): O80 - Encounter for full-term uncomplicated delivery Status: Acute (2) hemorrhage: Code(s): O72.1 - Other immediate hemorrhage Status: Acute OB - DS: Summary Hospital Course Hospital Course: Patient admitted on Jan 12 for medical induction of labor. She had a spontaneous vaginal delivery complicated by hemorrhage. She did get a currettage which resolved the bleeding. Post she did well. She had asymptomatic anemia. She was started on iron supplement. On day two she was doing well. Ambulating without difficulty. Lochia was mild. Her hemoglobin was 7.3. On day 2 she was doing well. No hypovolemic symptoms. She was doing well and discharged home with discharge precautions on 01/12/2021. OB Procedures : NST and Ultrasound OB Procedures Intrapartum: Spontaneous Vag Delivery OB Procedures: : Curettage and Antibiotics (prophylaxis OB Procedures : NST OB Procedures Intrapartum: Spontaneous Vag Delivery OB Procedures: : Curettage and Antibiotics Peripartum Data Infant Delivery Method: Natural Vaginal complications: uterine atony and retained placenta Status at Discharge Functional status at discharge: independent ambulation Time Spent with Patient Time attestation: Total time spent providing and/or coordinating discharge services: Exam Const: General: cooperative Orientation/consciousness: oriented to person, oriented to place and oriented to time HENMT: General nose exam: Normal external nose present Eyes: General: appearance normal, both eyes and all related structures Resp: Effort & Inspection: normal respiratory effort GI: Inspection: normal to inspection Skin: General skin exam: normal color Neuro: General: oriented to person, oriented to place and oriented to time Extrem: General: normal to inspection and no calf tenderness Psych: Appearance: grossly normal Mental Status: mental status grossly normal Discharge Plan Discharge Attending physician on discharge: Pepe Amaro Consulting providers: Cyrus Stein Discharging Clinician: Pepe Amaro Anticipated Discharge Date/Time: 01/12/21 10:59 Patient Disposition: Home, Self-Care Activity: may shower and pelvic rest Diet: regular Discharge Instructions: Pelvic rest for 4-6 weeks. May take over the counter Ibuprofen or Tylenol for pain. Call if saturating more than a pad an hour, leg redness, pain and swelling, temperature>100.4. No strenuous activity. Take iron supplement twice a day. May take Colace daily while taking iron may take up to 100mg twice a day to help with constipation. Education: Mom and Baby Guide Given to: Mother Follow-Up: Call your delivering provider's office for an appointment to be seen in: 4 Weeks Mom and baby should come to the [facility] for the follow-up appointment. Appointment Date/Time: January 16, 2021 at 11:00 am What to expect at your follow-up visit: Physical Assessment Call [phone] if you are unable to keep your appointment time. BREAST CARE: * Wear a snug supportive bra. * For engorgement discomfort: Breast Feeding: * Apply warm moist washcloths * Express milk as needed to relieve engorgement * Wear loose clothing * For sore nipples: * Identify correct latch-on * Apply warm moist washcloths before and after nursing * Air dry nipples after nursing * May apply Lansinoh cream to nipples PERINEAL CARE: * Until bleeding stops, use your daniel bottle after urinating * Change your pad frequently throughout the day * You may take sitz baths several times a day (fill your bat
== END 2021-01-12 12:58 | disposition home or self-care (01) | DRG 797 ==
LOC: ANHLDR 17:24 → ANHOB2 01-11 00:36
PROVIDERS: Admitting Provider Obstetrics & Gynecology; Visit Provider Obstetrics & Gynecology
DX: O69.1XX0 Labor and delivery complicated by cord around neck, with compression, not applicable or unspecified (principal); O72.2 Delayed and secondary postpartum hemorrhage; Z37.0 Single live birth; Z3A.40 40 weeks gestation of pregnancy; O36.8330 Maternal care for abnormalities of the fetal heart rate or rhythm, third trimester, not applicable or unspecified; O70.0 First degree perineal laceration during delivery; O99.214 Obesity complicating childbirth; E66.9 Obesity, unspecified; O99.284 Endocrine, nutritional and metabolic diseases complicating childbirth; E03.9 Hypothyroidism, unspecified; E28.2 Polycystic ovarian syndrome; O90.81 Anemia of the puerperium; D64.9 Anemia, unspecified
CPT/HCPCS: 36415; 85014; 85018; 85025; 85380; 85384; 85610; 85730; 86592; 86850; 86900; 86901; A9270; J0690; J2210; J2405; J2590; J2704; J2795; J7120

== ENCOUNTER 2021-01-20 20:43 | Emergency (ER) | payer BC, SELFPAY ==
--- NOTE | ~2021-01-20 | CT_ITS ---
EXAMINATION: CTA chest PE abdomen pel DATE: 01/21/2021 03:28 INDICATION: Chest pain. Dyspnea. Vaginal bleeding status post curettage. TECHNIQUE: Computed tomography angiography (CTA) of the chest was performed with 100 mL Omnipaque-350 intravenous contrast timed to evaluate the pulmonary arteries. Coronal maximum intensity projection 3D-reconstructions were created by the technologist. Computed tomography (CT) of the abdomen and pelv is was performed with intravenous contrast. Automated exposure control and iterative reconstruction t echnique were employed. The dose-length product was 1171.20 mGy-cm. COMPARISON: Chest CT 10/31/2018 FINDINGS: CTA chest: The lungs demonstrate minimal atelectasis. No pleural effusion. The heart size is normal. No pericardial effusion. There is no pulmonary embolus. CT abdomen and pelvis: There is a 6 mm cyst in the liver. There is a gallstone in the gallbladder, wh ich is normal in size. The spleen, pancreas, adrenal glands, and kidneys are normal. The endometrial complex measures 1.9 cm in thickness. The uterus is enlarged, consistent with recent . There are no dilated loops of bowel. The appendix is normal. There is mild lumbar spondylosis. IMPRESSION: 1. Thickened endometrial complex, which may be hematoma and/or retained products of conception. 2. No pulmonary embolus. Reviewed, dictated and finalized at location A. IMPRESSION: 1. Thickened endometrial complex, which may be hematoma and/or retained product s of conception. 2. No pulmonary embolus.
[2021-01-20 20:57] VITALS: BP 124/73; PULSE 92; RESP 14; TEMP 36.6; O2SAT 100
[2021-01-20 21:27] LABS: Basophils Percent Auto 0.2 % (0.2-1.2); Eosinophils Absolute Auto 0.1 K/mm3 (0-0.3); Eosinophils Percent Auto 0.7 % (0-4.4); Hematocrit 32.6 % (37.0-47.0); Hemoglobin 9.9 g/dL (12.0-15.0); Immature Granulocyte Absolute 0.06 K/mm3 (0.00-0.031); Immature Granulocyte Percent A 0.4 % (0-0.5); Lymphocytes Absolute Auto 2.95 K/mm3 (0.9-3.2); Lymphocytes Percent Auto 22.1 % (18.3-44.2); Mean Corpuscular HGB Conc 30.4 g/dl (32-36); Mean Corpuscular Hemoglobin 25.2 pg (26-34); Mean Platelet Volume 8.3 fl (7.4-10.4); Monocytes Absolute Auto 0.8 K/mm3 (0.1-0.6); Monocytes Percent Auto 5.8 % (2.6-8.5); Neutrophils Absolute Auto 9.4 K/mm3 (1.3-6.7); Neutrophils Percent Auto 70.8 % (45.5-73.1); Platelet Count Result 464 k/mm3 (150-375); Red Blood Count 3.93 M/mm3 (4.2-5.4); Red Cell Distribution Width 18.7 % (11.5-14.5); White Blood Count 13.4 K/mm3 (4.5-10.0)
[2021-01-20 21:32] LABS: Alanine Aminotransferase 23 U/L (4-35); Alkaline Phosphatase 210 U/L (38-126); Anion Gap 7 mmol/L (8-16); Aspartate Amino Transferase 44 U/L (14-36); Bilirubin,Total 0.4 mg/dL (0.2-1.3); Blood Urea Nitrogen 16 mg/dL (7-17); Calcium 8.8 mg/dL (8.4-10.2); Carbon Dioxide 26 mmol/L (22-30); Chloride 104 mmol/L (98-107); Estimated CRCL calculation 95 ml/min; Estimated Glomerular Filt Rate > 60; Glucose 99 mg/dL (65-110); Lipase 233 U/L (23-300); Potassium 3.7 mmol/L (3.4-5.0); Sodium 137 mmol/L (137-145)
[2021-01-20 23:32] LABS: Add Urine Microscopic? YES; Appearance Urine Cloudy (Clear); Bilirubin Urine Negative (Negative); Blood Urine 3+ (Negative); Color Urine Amber (Yellow); Glucose Urine UA Negative (Negative); Ketones Urine Negative (Negative); Leukocyte Esterase Ur 3+ LEU/UL (Negative); Mucus Urine Heavy /lpf; Nitrate Urine Negative (Negative); Protein Urine 2+ mg/dL (Negative); RBC Urine >75 /hpf (0-2); Specific Grav Ur 1.027 (1.001-1.035); Squamous Epithelial Cell Urine Many /hpf (Few); WBC Clumps Urine Present /HPF; WBC Urine >75 /hpf
[2021-01-20 23:54] VITALS: BP 129/83; PULSE 98; RESP 18; TEMP 36.4; O2SAT 99
[2021-01-21 02:03] VITALS: BP 125/83; PULSE 89; RESP 14; TEMP 36.2; O2SAT 100
--- NOTE | 2021-01-21 02:03 | ECG_ITS ---
Measurements Intervals [place] Rate: 78 P: 58 HI: 150 QRS: 12 QRSD: 82 T: 31 QT: 367 QTc: 418 Interpretive Statements SINUS RHYTHM NORMAL ECG Electronically Signed On 01-21-2021 6:08:18 CDT by Jai Hickman D.O.
--- NOTE | 2021-01-21 02:04 | PC.NURSE ---
pt. updated RN that she is having cp. EKG and TNI baseline added on.
--- NOTE | 2021-01-21 02:38 | ED.GENADULT ---
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 Patient states that she had a shower approximately 730 this evening when she had sudden onset of midsternal chest pain as well as upper abdominal pain associated with shortness of breath. States that this was then followed by 3 episodes of emesis and caused her to fall to the ground. Patient states that she recently had a vaginal delivery by Dr. Yancey on 01/10/2021 and had complications of vaginal bleeding and required a D&C and lost a total of 2 L of blood patient states she continues to have pain across the anterior bilateral chest described as a pressure she denies any fevers or chills diarrhea or any other symptoms states she not take anything for pain at home Related Data Home Medications Medication Instructions Recorded Confirmed ergocalciferol (vitamin D2) 1 unit PO DAILY 06/28/20 01/17/21 [Vitamin D2] levothyroxine 75 mcg PO DAILY 06/28/20 01/17/21 aspirin 81 mg chewable tablet 81 mg PO DAILY 07/09/20 01/17/21 Allergies Allergy/AdvReac Type Severity Reaction Status Date / Time cephalexin [From Keflex] Allergy Hives Verified 01/21/21 03:06 Review of Systems Review of Systems: Gen.: Denies fevers or chills Eyes: Denies eye pain or visual change ENT: Denies congestion Respiratory: Reports shortness of breath CV: Reports chest pain GI: See HPI ports recent vaginal delivery Musculoskeletal: Denies back pain or muscle pain Neuro: Denies numbness, tingling, weakness or focal weakness Skin: Denies rash Except as documented, all other systems reviewed and negative [facility] Past Medical History Medical History Environmental allergies History of vaginal delivery Hypothyroidism PCOS (polycystic ovarian syndrome) Surgical History Surgical History History of placement of ear tubes Hx of tonsillectomy Family History Family History Grandparent Breast cancer Acute myocardial infarction Social History Social History Smoking status: Former smoker Smoking end date: 04/05/12 Alcohol intake: former Alcohol use details: Not since Substance use: never Spiritual care concerns: No Exam Narrative: APPEARANCE: No acute distress, nontoxic, resting in bed EYES: EOMI HEENT: Normocephalic, atraumatic, OMM RESPIRATORY: No respiratory distress Clear to auscultation bilaterally with no rhonchi wheezing or rales. CARDIOVASCULAR: Regular rate and rhythm without murmurs rubs or gallops. Chest: Tender palpation of bilateral anterior chest ABDOMINAL: Soft, nondistended tender palpation epigastric and right upper quadrant left lower quadrant no tenderness right lower quadrant left lower quadrant no rebound or guarding MUSCULOSKELETAl: Moves all extremities. No clubbing, cyanosis or edema. NEURO: Awake and alert. Following commands, speech normal, no focal deficits SKIN:: Warm, dry. No rashes lesions or abrasions PSYCHIATRIC: Normal affect/mood, Course Course Emergency Course: Reviewed old records patient's hemoglobin is improved from prior Patient states pain is resolved at this time Discussed Dr. Sr for Dr. Amaro presentation work-up agrees with plan for discharge with follow-up as an outpatient recommends Macrobid for UTI This with patient her child had no problems with hyperbilirubinemia will use Macrobid Patient states that they are feeling much better at this time. States abdominal pain has resolved. Repeat abdominal exam shows the patient's abdomen to be soft and nontender. Discus
[2021-01-21 02:49] LABS: Troponin I < 0.012 ng/mL (0.000-0.034)
[2021-01-21 02:52] VITALS: BP 128/72; PULSE 88; RESP 18; O2SAT 100
--- NOTE | 2021-01-21 02:56 | PC.NURSE ---
attempted IV access. was unsuccessful. other RN in room for 2nd attempt.
[2021-01-21] MEDS: KETOROLAC 30 MG/ML VIAL (*BKC) IV PUSH (03:02)
[2021-01-21] MEDS: SODIUM CHLORIDE 0.9% IV 1,000 ML 999 ML IV CONT (03:02)
[2021-01-21 04:02] VITALS: BP 112/67; PULSE 65; RESP 18; O2SAT 100
[2021-01-21] MEDS: NITROFURANTOIN MONOHYD MACROCR 100 MG CAP PO (05:33)
[2021-01-21 05:34] VITALS: BP 116/78; PULSE 77; RESP 21; O2SAT 100
[2021-01-21 06:02] LABS: Troponin I < 0.012 ng/mL (0.000-0.034)
[2021-01-21 06:21] VITALS: BP 121/68; PULSE 82; RESP 16; O2SAT 100
== END 2021-01-21 06:21 | disposition home or self-care (01) ==
PROVIDERS: Emergency Medicine; Emergency Provider Emergency Medicine
DX: O99.63 Diseases of the digestive system complicating the puerperium (principal); K80.20 Calculus of gallbladder without cholecystitis without obstruction; O86.20 Urinary tract infection following delivery, unspecified; N39.0 Urinary tract infection, site not specified; O99.893 Other specified diseases and conditions complicating puerperium; R07.2 Precordial pain; O99.285 Endocrine, nutritional and metabolic diseases complicating the puerperium; E28.2 Polycystic ovarian syndrome; Z87.891 Personal history of nicotine dependence
CPT/HCPCS: 36415; 71275; 74177; 80053; 81001; 81025; 83690; 84484; 85025; 87086; 93005; 96361; 96374; 99284; A9270; J1885; J7030; Q9967

== ENCOUNTER → 2021-02-18 02:29 | Outpatient (CLI) | payer BC, SELFPAY ==
[2021-02-18 19:34] LABS: SARS-CoV-2 RNA PCR Negative
== END ==
PROVIDERS: Visit Provider Surgery
DX: Z01.812 Encounter for preprocedural laboratory examination (principal); Z20.822 Contact with and (suspected) exposure to COVID-19
CPT/HCPCS: C9803; U0003; U0005

== ENCOUNTER 2021-02-18 09:42 | Outpatient (CLI) | payer BC, SELFPAY ==
[2021-02-18 10:02] LABS: Hematocrit 38.7 % (37.0-47.0)
[2021-02-18 10:29] LABS: Alanine Aminotransferase 18 U/L (4-35); Albumin Level 4.3 g/dL (3.5-5.1); Alkaline Phosphatase 126 U/L (38-126); Amylase 51 U/L (30-110); Aspartate Amino Transferase 22 U/L (14-36); Bilirubin,Total 0.3 mg/dL (0.2-1.3); Lipase 162 U/L (23-300)
== END 2021-02-18 09:43 | disposition home or self-care (01) ==
LOC: ANHSURGERY 09:46
PROVIDERS: PCP Nurse Practitioner; Visit Provider Surgery
DX: Z01.818 Encounter for other preprocedural examination (principal); K80.20 Calculus of gallbladder without cholecystitis without obstruction; D64.9 Anemia, unspecified
CPT/HCPCS: 36415; 80076; 82150; 83690; 85014; 85018; 86850; 86900; 86901

== ENCOUNTER 2021-02-21 01:45 | Day surgery (SDC) | payer BC, SELFPAY ==
[2021-02-17 11:05] VITALS: BMI 31.6
--- NOTE | 2021-02-17 11:19 | PC.NURSE ---
Report to the Outpatient Waiting Room, entrance under the green pavilion located off [facility], at time 11:00 on date 02/21/21. OR Time: 1:00. - You and your visitor will be asked a series of questions to screen for COVID 19 for your protection. - A mask is required within the hospital. - Only one visitor is allowed at this time. Patient visitors will be guided where to wait when not with patient. Preoperative COVID Testing Requirements: No COVID Test needed if: (proof is required; if not received patient will have Rapid Test prior to entry) - Patient has received COVID Vaccine at least 14 days prior to procedure date or - Patient has positive COVID test result within last 90 days of surgery date. COVID Test needed if above criteria is not met If not COVID vaccinated a COVID test must be conducted within 72 hours of surgery and patient is asked to isolate self from time of testing until procedure. You will go to the [facility] for your COVID testing. The [facility] site is located at the corner of [address] [facility]. COVID TEST 02/18 AT 9:30 You will only be called if COVID results are positive and your surgeon may reschedule your elective surgery date. Patients may have clear liquids (water, carbonated beverages, clear teas, apple juice) until 3 hours prior to surgery with a maximum of 20 ounces. - No food from midnight until time of surgery - Infants may have breast milk until 4 hours before surgery, infant formula 6 hours prior to surgery. - Children will be allowed to drink immediately following surgery. If applicable, please bring a bottle or sippy cup to assist with drinking. Juice, water, soda, and popsicles are readily available. For infants on formula, please bring formula the day of surgery. Pacifiers are allowed. Take the following medications with a SIP of water the morning of surgery: LEVOTHYROXINE Medications to discontinue per physician: VITAMINS/SUPPLEMENTS Date to take last dose: 02/18/21 Please no make-up, nail danish, hairspray, perfume, deodorant, or body powder the day of surgery. No jewelry (including any body piercings) or valuables the day of surgery, leave them at home. Please take a shower or bath the night before, or the morning of, surgery with an antibacterial soap. Wear comfortable, loose fitting clothing. Children are encouraged to wear pajamas. HIBICLENS SHOWER - Jewelry must be removed prior to entering the operating room. Rings and piercings that are not removed may be cut off. - The hospital will not accept responsibility for valuables. - Please leave all valuables, including medications, at home the day of surgery. If you are going home after surgery, a licensed grab driver must drive you home. - NO public transportation without another adult. - We recommend that an adult stay with you for 24 hours following discharge. - We also recommend that you do not drive, make important decision, drink alcoholic beverages, or take any drugs that were not prescribed by your health care provider for at least 24 hours after your discharge time. For Pediatric surgeries, we recommend two adults accompany the child home (only one inside the building at this time). Follow any additional instructions given to you from your surgeon. Telephone instructions given to PARDEEP AYO and asked if any additional questions and then verbalized understanding. Patient advised to call surgeon office or pre surgery nurse liaison [phone] if any additional questions.
[2021-02-21] VITALS (8 sets, daily range): BP systolic 100–117; BP diastolic 60–70; PULSE 56–75; RESP 12–18; TEMP 36.2–36.7; O2SAT 98–100
[2021-02-21] MEDS: ACETAMINOPHEN 500 MG TABLET 1000 MG PO (11:56)
[2021-02-21] MEDS: LACTATED RINGERS 1,000 ML 30 ML IV CONT (12:05)
--- NOTE | 2021-02-21 12:44 | P.PNAN_ITS ---
Anes - Initial Pre Proc Eval Procedure: Operation Date: 02/21/21 13:00 Proposed Procedures p Laparoscopic Cholecystectomy, Possible Open - Mason Pool DO Date/Time: 02/21/21 12:44 Surgeon: Mason Pool DO Pre Op Diagnosis: symptomatic cholelithiasis Patient Data Age: 35 Gender: F Height: 1.65 m Weight: 86.2 kg Last Vital Signs Temp 97.1 F L 02/21/21 11:13 Pulse 69 02/21/21 11:13 Resp 16 02/21/21 11:13 BP 112/70 02/21/21 11:13 Pulse Ox 100 02/21/21 11:13 Allergies Allergy/AdvReac Type Severity Reaction Status Date / Time cephalexin [From Keflex] Allergy Severe Hives Verified 02/21/21 11:53 Home Medications Medication Instructions Recorded Confirmed Type ergocalciferol (vitamin D2) 1 unit PO DAILY 06/28/20 02/21/21 History [Vitamin D2] aspirin 81 mg chewable tablet 81 mg PO DAILY 07/09/20 02/21/21 History levothyroxine 75 mcg tablet 75 mcg PO DAILY #30 tablet 01/22/21 02/21/21 Rx ferrous sulfate 325 mg (65 mg 325 mg PO DAILY 02/12/21 02/21/21 History iron) tablet Patient hx anesthesia problems: none Family hx anesthesia problems: none Results Review: All pre-operative results and documents have been reviewed as part of the pre-operative evaluation. [facility] Past Medical History Medical History Environmental allergies History of vaginal delivery Hypothyroidism PCOS (polycystic ovarian syndrome) Surgical History Surgical History History of placement of ear tubes Hx of tonsillectomy Family History Family History Grandparent Breast cancer Acute myocardial infarction Social History Social History Years smoked: 1.5 Smoking status: Former smoker Tobacco type: cigarettes Smoking end date: 04/05/14 Alcohol intake: current Drinks per week: 1 Alcohol use details: Not since Substance use: never Substance use type: does not use Living arrangements: with family Spiritual care concerns: No Anes - Eval Final PreProcedure Day of Procedure 02/21/21 12:44 Patient weight: obese Heart: regular rate and rhythm Lungs: clear to auscultation Airway: Mallampati scale class II Neurological: alert and oriented Last oral intake: >/= 8 hours ASA classification: II Emergent: no Anesthetic plan: proceed Anesthesia type and monitoring: general GIVS and standard monitoring Results Review: All pre-operative results and documents have been reviewed as part of the pre-operative evaluation. Informed Consent: The patient's anesthetic plan and its attendant risks and benefits were discussed with the patient/family/POA. Questions were solicited and answers provided to the satisfaction of the patient/family/POA.
--- NOTE | 2021-02-21 12:45 | WPDHPUPDATE1 ---
History and Physical Update Update Date/Time: 02/21/21 12:45 History and Physical has been reviewed, including an updated exam of the patient. There are NO changes in the patient's condition. Risks, benefits, and alternatives have been discussed and questions answered. Patient agrees to proceed with procedure.
--- NOTE | 2021-02-21 13:00 | SUR.PREOP ---
1300 pt pumped for breast milk and placed in refrigerator in op surgery.
[2021-02-21] MEDS: CLINDAMYCIN 900 MG/D5W 50 ML 900 MG/50 ML PIGGYBACK 50 MG IVPB (13:03)
[2021-02-21] MEDS: BUPIVACAINE HCL 0.5% PF 30 ML VIAL INFILTRATE (13:43)
--- NOTE | 2021-02-21 14:08 | W.PM.PROC2 ---
Procedure Note - Detailed Date of Procedure 02/21/21 Pre-op Diagnosis symptomatic cholelithiasis Post-op Diagnosis same Procedure Performed Laparoscopic Cholecystectomy Surgeon Mason Pool, DO Anesthesia general and local (0.5% bupivacaine) Indications This is a 35-year-old woman who presented with right upper quadrant pain for the past month. She had an episode that brought her to the emergency department about 1 month ago. She was about 2 weeks when this initially happened. Gallbladder ultrasound showed evidence of cholelithiasis. Discussions were made with the patient about treatment options and decision made to proceed with laparoscopic cholecystectomy, possible open. Findings Laparoscopic cholecystectomy was performed. The gallbladder was somewhat dilated, but no other significant abnormalities were noted. The cystic duct appeared normal in size. No large stones were palpable within the gallbladder, but difficult to tell if small stones were there due to bile filled gallbladder. The gallbladder was removed and sent to the lab for pathology. Description of Procedure Procedure as well as risks, benefits, and alternatives were discussed with patient. Written consent was obtained and placed in chart prior to procedure. The patient was brought back to surgical suite. Patient was placed in supine position on operating table. Time-out was done to confirm patient and procedure. Patient was then intubated by the anesthesia department. Abdomen was prepped and draped in sterile fashion using chlorhexidine prep. 0.5% bupivacaine with epinephrine was infiltrated at each site of incision. A 5 millimeter incision was made near the umbilicus, and a 5 millimeter Optiview trocar was advanced through the abdominal layers under direct visualization. Once inside the abdominal cavity, carbon dioxide was insufflated to create a pneumoperitoneum. The camera was inserted and the abdomen was inspected. No immediate abnormalities were identified. The patient was placed in reverse Trendelenburg position and rotated slightly to the left. An 11 millimeter incision was made in the subxiphoid region, and an 11 millimeter trocar was inserted under direct visualization. Two 5 millimeter incisions were made in the right upper quadrant, and two 5 millimeter trocars were inserted under direct visualization. The gallbladder was identified and grasped at the fundus and retracted superiorly. It was then grasped at the infundibulum retracted laterally. Careful dissection around the neck of the gallbladder was performed using blunt dissection with a [place] grasper and hook electrocautery. The cystic duct was identified, and a window was created behind it. The cystic artery was also identified and a window was created behind it. The critical view of safety was identified, visualizing the cystic duct running directly into the neck of the gallbladder, and the cystic artery running directly into the wall of the gallbladder. A 5 millimeter clip data consultant was then used to place 2 clips proximally and 1 clip distally on both the cystic duct and cystic artery. They were then both transected using endoscopic scissors. Once safely away from the beckie hepatitis, the gallbladder was dissected free from the liver bed using hook electrocautery. Hemostasis was achieved along the way. The gallbladder was removed completely and then removed through the subxiphoid port. The liver bed was then inspected. Hemostasis appeared adequate, and our clips appeared secure. The area was gently irrigated with sterile saline. No other abnormalities were seen. The patient was flattened out in bed, and 1 final inspection was made around the abdominal cavity. The subxiphoid port was removed, and a Torin Anna cone was used to approximate the fascia with an 0-Vicryl simple interrupted suture. The remaining ports were then removed under direct visualization, the camera was removed, and the
[2021-02-21] MEDS: fentaNYL CITRATE INJ (*CRX) 100 MCG/2 ML VIAL 25 MCG IV PUSH ×2 (14:29→14:46)
[2021-02-21] MEDS: ONDANSETRON INJ 4 MG/2 ML VIAL IV PUSH (14:32)
--- NOTE | 2021-02-21 14:41 | SUR.PHASEI ---
Simple mask removed at 1440.
== END 2021-02-21 16:18 | disposition home or self-care (01) ==
PROVIDERS: Visit Provider Surgery
PROC: 0FT44ZZ Resection of Gallbladder, Percutaneous Endoscopic Approach (ICD-10-PCS; CPT 47562; principal; 2021-02-21 13:00)
DX: K81.1 Chronic cholecystitis (principal); E03.9 Hypothyroidism, unspecified; Z79.82 Long term (current) use of aspirin; E28.2 Polycystic ovarian syndrome; Z87.891 Personal history of nicotine dependence; E66.9 Obesity, unspecified; Z68.31 Body mass index [BMI] 31.0-31.9, adult
CPT/HCPCS: 47562; 88304; A9270; J1100; J1170; J2250; J2405; J2704; J2710; J3010; J7030; J7120

== ENCOUNTER → 2021-06-26 09:32 | Outpatient (CLI) | payer BC, SELFPAY ==
--- NOTE | ~2021-06-26 | US_ITS ---
US breast LT complete DATE: 06/26/2021 09:55 INDICATION: Breast lump and pain with menstrual cycle, since resolved TECHNIQUE: Real-time imaging of the complete left breast including all 4 quadrants and subareolar are a COMPARISON: None FINDINGS: No suspicious mass or shadowing, cyst or other significant sonographic finding is noted thr oughout the left breast. IMPRESSION: BI-RADS Category 1: Negative Reviewed, dictated and finalized at Location [facility]. Reviewed, dictated and finalized at location A.
== END ==
PROVIDERS: Visit Provider Obstetrics & Gynecology
DX: N64.4 Mastodynia (principal)
CPT/HCPCS: 76641

== ENCOUNTER 2023-08-07 09:50 | Outpatient (RCR) | payer BC, SELFPAY ==
[2023-07-06 15:14] VITALS: BP 114/70; PULSE 92
[2023-07-16 15:02] VITALS: BP 108/76; PULSE 92
[2023-07-23 16:18] VITALS: BP 112/72; PULSE 89
[2023-07-31 10:46] VITALS: BP 114/66; PULSE 74
--- NOTE | ~2023-08-07 | US_ITS ---
EXAMINATION: US OB limited w BPP DATE: 07/23/2023 15:21 INDICATION: . Third trimester. TECHNIQUE: Real-time pelvic ultrasound was performed. COMPARISON: None. FINDINGS: There is a single living fetus in vertex presentation. The placenta is anterior. heart rate is 125 beats per minute (bpm). The amniotic fluid index is normal and measures 11.5 cm. Biophysical profile performed by the technologist: breathing (30 sec sustained breathing in 30 minutes): 2 out of 2 movement (3 gross body movements in 30 minutes): 2 out of 2 tone (one episode of juxtiil-bgrtaxhxn-sahlajl limb movement): 2 out of 2 Amniotic fluid pocket (2 cm): 2 out of 2 Total score: 8 out of 8 IMPRESSION: 1. Single living fetus in vertex presentation. 2. Biophysical profile 8 out of 8. Reviewed, dictated and finalized at location E.
--- NOTE | ~2023-08-07 | US_ITS ---
US OB limited DATE: 07/31/2023 10:38 INDICATION: Amniotic fluid index measurement TECHNIQUE: Real-time imaging and Doppler analysis COMPARISON: July 23, 2023 Limited obstetrical ultrasound examination FINDINGS: Live tolentino intrauterine gestation, fetus in longitudinal lie, vertex presentation, with heart rate of 122 bpm. Anterior placenta. Amniotic fluid index measures 10.6 cm, within lower normal range. (50 percentile RAYMUNDO: 17.3 cm; 95th p ercentile RAYMUNDO: 23.9 cm) IMPRESSION: Amniotic fluid index measures 10.6 cm, compared to 11.5 cm on July 23, 2023 Reviewed, dictated and finalized at Location A. Reviewed, dictated and finalized at location A.
--- NOTE | ~2023-08-07 | US_ITS ---
EXAMINATION: US OB BPP wo non-stress DATE: 08/07/2023 10:46 INDICATION: Third trimester IVF . Assess biophysical profile and amniotic fluid index TECHNIQUE: Real-time pelvic ultrasound was performed. The interpreting radiologist was not present fo r the study. COMPARISON: None. FINDINGS: There is a single living fetus in vertex presentation. The placenta is anterior. heart rate is 134 beats per minute (bpm). Normal amniotic fluid index of 19.2 cm (5th%-95%: 7.2-22.6 cm at 29 week s estimated gestational age) Biophysical profile performed by the technologist: breathing (30 sec sustained breathing in 30 minutes): 2 out of 2 movement (3 gross body movements in 30 minutes): 2 out of 2 tone (one episode of qefkevp-ckmynahjy-bfgseeb limb movement): 2 out of 2 Amniotic fluid pocket (2 cm): 2 out of 2 Total score: 8 out of 8 IMPRESSION: 1. Single living fetus in vertex presentation with heart rate of 134 bpm. 2. Biophysical profile 8 out of 8. 3. Normal amniotic fluid index of 19.2 cm. Reviewed, dictated and finalized at location A.
[2023-08-07 11:03] VITALS: BP 117/77; PULSE 90
== END 2023-09-20 08:23 | disposition home or self-care (01) ==
LOC: ANHOBOP 09:50
PROVIDERS: Visit Provider Obstetrics & Gynecology
DX: O36.8130 Decreased fetal movements, third trimester, not applicable or unspecified (principal); O36.8330 Maternal care for abnormalities of the fetal heart rate or rhythm, third trimester, not applicable or unspecified; O09.813 Supervision of pregnancy resulting from assisted reproductive technology, third trimester; Z3A.34 34 weeks gestation of pregnancy; Z3A.36 36 weeks gestation of pregnancy; Z3A.37 37 weeks gestation of pregnancy; Z3A.38 38 weeks gestation of pregnancy; Z3A.39 39 weeks gestation of pregnancy
CPT/HCPCS: 59025; 76815; 76819; A9270

== ENCOUNTER 2023-08-09 07:16 | Inpatient (IN) | payer BC, SELFPAY ==
[2023-08-09] VITALS (93 sets, daily range): BP systolic 79–137; BP diastolic 46–100; PULSE 66–141; RESP 16; TEMP 36.4–36.9; O2SAT 98–100; BMI 34.7
--- NOTE | 2023-08-09 07:44 | PC.NURSE ---
Called and spoke with Dr. Yancey regarding SROM and SVE of pt. MD verbalized understanding, orders to start low dose pitocin per policy. RN repeated orders back to confirm.
--- NOTE | 2023-08-09 08:09 | LDADM ---
This patient, Paulette Cisneros, was admitted to Labor/Delivery/Recovery 106 on 08/09/23 at 07:16. Plans for labor, pain management and were discussed with patient. Patient/family oriented to hospital policies and general routines including ID bracelet, bed and alarms, visiting hours, pain management, procedures, bathroom and other care routines, personal items, smoking policy, room service/diet and guest tray routines, infant security routines, and visiting hours. Patient/Family are encouraged to report perceived risks to care and to ask questions if they do not understand what they are told or what they should do. See OBIX for further documentation.
[2023-08-09 08:12] LABS: Basophils Percent Auto 0.2 % (0.2-1.2); Eosinophils Absolute Auto 0.2 K/mm3 (0-0.3); Eosinophils Percent Auto 1.5 % (0-4.4); Hematocrit 33.7 % (37.0-47.0); Hemoglobin 10.4 g/dL (12.0-15.0); Immature Granulocyte Absolute 0.15 K/mm3 (0.00-0.031); Lymphocytes Percent Auto 17.4 % (18.3-44.2); Mean Corpuscular HGB Conc 30.9 g/dl (32-36); Mean Corpuscular Hemoglobin 24.6 pg (26-34); Mean Corpuscular Volume 79.7 fl (80-100); Mean Platelet Volume 9.1 fl (7.4-10.4); Monocytes Percent Auto 6.6 % (2.6-8.5); Neutrophils Absolute Auto 11.4 K/mm3 (1.3-6.7); Neutrophils Percent Auto 73.3 % (45.5-73.1); Platelet Count Result 365 k/mm3 (150-375); Red Blood Count 4.23 M/mm3 (4.2-5.4); Red Cell Distribution Width 14.4 % (11.5-14.5); White Blood Count 15.6 K/mm3 (4.5-10.0)
[2023-08-09] MEDS: LACTATED RINGERS 1,000 ML 125 ML IV CONT ×3 (08:25→23:08)
[2023-08-09 09:05] LABS: Rapid Plasma Reagin Non-Reactive (NonReactive)
[2023-08-09] MEDS: OXYTOCIN 30 UNITS/NS 500 ML 30 UNITS/500 ML BAG IV CONT (10:19)
--- NOTE | 2023-08-09 13:21 | PM.IMHP ---
H&P: HPI History of Present Illness Date/Time: 08/09/23 13:21 Chief Complaint: Leaking of fluid Narrative: 37 y/o at 38 weeks admitted for LOF clear at 0430. Cervix /-2, occasional ctx. PNC significant for IVF conception. Hypothyroidism. Review of Systems Review of Systems: All systems reviewed & are unremarkable except as noted in HPI and below Constitutional: Constitutional: Reports no additional constitutional complaints and Denies headache(s) Eyes: Eyes: Denies spots in vision ENT: Reports system reviewed and no additional complaints, except as documented and Denies headache(s) Cardiovascular: Cardiovascular: Denies chest pain and Denies dyspnea Respiratory: Respiratory: Denies dyspnea Gastrointestinal: Gastrointestinal: Reports no additional gastrointestinal complaints Genitourinary: Genitourinary: Reports amenorrhea Musculoskeletal: Musculoskeletal: Reports no additional musculoskeletal complaints Integumentary/Breasts: Skin/Breast: Denies breast mass and Denies rash Neurologic: Denies headache(s) Psychiatric: Psychiatric: Reports no additional psychiatric complaints PMF Past Medical History Medical History Encounter for supervision of normal in first trimester Environmental allergies History of vaginal delivery Hypothyroidism PCOS (polycystic ovarian syndrome) Surgical History Surgical History History of placement of ear tubes Hx laparoscopic cholecystectomy 02/21/21 Hx of tonsillectomy Family History Family History Grandparent Breast cancer Acute myocardial infarction Social History Social History Smoking status: Never smoker Tobacco type: cigarettes Smoking end date: 04/05/14 Alcohol intake: current Drinks per week: 1 Alcohol use details: Not since Substance use: never Substance use type: does not use Do You Feel Safe in your Home?: Yes Lack of Transportation: No Lack of Food: Never True Current Housing: I Have Housing Concerned About Future Housing: No Difficulty Paying Gas/Electric Bills: No Difficulty Paying for Meds: No Currently Unemployed: No Education: Bachelor's Degree Difficulty w/ Childcare or Family Care: No Living arrangements: with family Occupation/Education: other Additional occupation/education comments: Stay at home mom Gender identity (if verbalized by the patient): Female Sexual Orientation (if Verbalized by the Patient): Straight or Heterosexual Spiritual care concerns: No Meds Home Medications and Allergies Home Medications Medication Instructions Recorded Confirmed Type ergocalciferol (vitamin D2) 1,250 1 unit PO DAILY 06/28/20 08/09/23 History mcg (50,000 unit) capsule (Vitamin D2) aspirin 81 mg chewable tablet 81 mg PO DAILY 07/09/20 08/09/23 History calcium carbonate (Calcium 500) 500 mg PO DAILY 01/27/23 08/09/23 History vitamins no.68-iron 28 1 cap PO DAILY 01/27/23 08/09/23 History mg-folate no.6 1 mg-dha 400 mg capsule levothyroxine 75 mcg tablet 75 mcg PO DAILY #30 tabs 03/01/23 08/09/23 Rx Allergies Allergy/AdvReac Type Severity Reaction Status Date / Time cephalexin [From Keflex] Allergy Severe Hives Verified 08/05/23 15:13 Vital Signs Vital Signs - 24 hr 08/09/23 08:06 08/09/23 08:30 08/09/23 09:00 Temperature Pulse Rate 97 81 81 Blood Pressure 118/83 125/76 123/76 Pulse Oximetry 98 Oxygen Delivery 08/09/23 09:27 08/09/23 07:50 08/09/23 09:29 Temperature 97.9 F 97.7 F Pulse Rate Blood Pressure Pulse Oximetry 100 Oxygen Delivery 08/09/23 09:30 08/09/23 09:32 08/09/23 09:37 Temperature Pulse Rate 88 Blood Pressure 120/80 Pulse Oximetry 100 100 Oxygen Deli
--- NOTE | 2023-08-09 13:25 | P.PNOB_ITS ---
OB - PN: Subj Subjective Date/time seen: 08/09/23 13:25 Interval history: FHT 130 cat 1, forebag AROM large amount clear fluid. Continue Pitocin. Cervix /2. OB - PN: Obj Data Labs 08/09/23 08:00 Labs: Laboratory Results - last 24 hr 08/09/23 08:00 WBC 15.6 H RBC 4.23 Hgb 10.4 L Hct 33.7 L MCV 79.7 L MCH 24.6 L MCHC 30.9 L RDW 14.4 Plt Count 365 MPV 9.1 Immature Gran % (Auto) 1.0 H Neut % (Auto) 73.3 H Lymph % (Auto) 17.4 L Sullivan % (Auto) 6.6 Eos % (Auto) 1.5 Baso % (Auto) 0.2 Lymph # (Auto) 2.70 Sullivan # (Auto) 1.0 H Eos # (Auto) 0.2 Baso # (Auto) 0.0 Abs Immat Gran (auto) 0.15 H Absolute Neuts (auto) 11.4 H Absolute Nucleated RBC 0.000 Nucleated RBC % 0.0 RPR Non-reactive Blood Type B Positive Antibody Screen Negative OB - PN A/P Time Spent With Patient Time: Total time spent is greater than 50% in coordination of care (as documented) at patient's floor/unit and/or counseling patient:
--- NOTE | 2023-08-09 13:27 | PM.OBPRVD ---
OB - Vaginal Delivery Note Procedure Delivery date: 08/09/23 Events: Other (IVF conception, Hypothyroidism) Delivery augmentation: Pitocin Delivery monitor: External FHT Route of delivery: Laceration Description: Perineal - 1st Degree Delivery repair: vicryl (3.0 vicryl) Specimen: No Quantitative Blood Loss (ml): 250 Anesthesia type: Epidural Disposition: Floor Complications: No immediate complications Narrative: She was admitted with diagnosis of SROM. She was not in active labor. She had irregular contractions. Epidural placed. Pitocin started. She dilated to complete and delivered a male infant, OP position. was vigorously crying on delivery and placed on maternal abdomen after loose nuchal cord manually reduced. Nose and mouth suctioned at perineum. Cord blood and cord gases obtained. Pitocin started. Placenta delivered spontaneously and intact.Small laceration at introitus approximated with figure of eight stitch of 0 vicryl. Baby Date of : 08/09/23 Time of : 13:06 Weeks of gestation at delivery: 38 gender: Male presentation: vertex position: Other (direct OP) Placenta delivery description: Spontaneous Cord Vessel Description: 3 Vessels, Nuchal Cord, Loose and Reduced (manually) score one minute: 9 score five minutes: 9
[2023-08-09] MEDS: OXYTOCIN 30 UNITS/NS 500 ML 30 UNITS/500 ML BAG 125 UNITS IV CONT (13:45)
--- NOTE | 2023-08-09 14:14 | PC.NURSE ---
This RN called Dr. Amaro to inform of QBL over 500. gave medication orders, read back to clarify. See MAR.
[2023-08-09] MEDS: miSOPROStol 200 MCG TABLET 1000 MCG RECTAL (14:29)
[2023-08-09] MEDS: TRANEXAMIC ACID 1,000MG/ISO100 1,000 MG/100 ML BAG 200 MG IVPB (14:30)
--- NOTE | 2023-08-09 14:42 | PC.NURSE ---
Called Dr. Amaro again to notify of QBL of 6585. states she will be up shortly to see patient.
[2023-08-09] MEDS: BENZOCAINE 20% AER SPR (*SP) 56 GM CAN 1 SPRAY TOPICAL (14:57)
[2023-08-09] MEDS: ACETAMINOPHEN 325 MG TABLET 650 MG PO ×2 (14:57→22:10)
[2023-08-09] MEDS: IBUPROFEN 600 MG TABLET PO ×2 (14:59→22:09)
[2023-08-09] MEDS: fentaNYL CITRATE INJ (*CRX) 100 MCG/2 ML VIAL 50 MCG IV PUSH ×2 (15:04→15:22)
[2023-08-09] MEDS: ONDANSETRON INJ 4 MG/2 ML VIAL IV PUSH (15:23)
[2023-08-09 15:42] LABS: Hematocrit 34.6 % (37.0-47.0); Hemoglobin 10.7 g/dL (12.0-15.0); Mean Corpuscular HGB Conc 30.9 g/dl (32-36); Mean Corpuscular Hemoglobin 24.5 pg (26-34); Mean Corpuscular Volume 79.4 fl (80-100); Mean Platelet Volume 9.5 fl (7.4-10.4); Platelet Count Result 371 k/mm3 (150-375); Red Blood Count 4.36 M/mm3 (4.2-5.4); Red Cell Distribution Width 14.4 % (11.5-14.5); White Blood Count 25.5 K/mm3 (4.5-10.0)
[2023-08-09 15:52] LABS: Alanine Aminotransferase 10 U/L (6-35); Albumin Level 3.4 g/dL (3.5-5.1); Alkaline Phosphatase 236 U/L (38-126); Anion Gap 6 mmol/L (4-12); Aspartate Amino Transferase 21 U/L (14-36); Bilirubin,Total 0.4 mg/dL (0.2-1.3); Blood Urea Nitrogen 8 mg/dL (7-17); Calcium 8.9 mg/dL (8.4-10.2); Carbon Dioxide 20 mmol/L (22-30); Chloride 109 mmol/L (98-107); Estimated CRCL calculation 126 ml/min; Estimated Glomerular Filt Rate > 60; Glucose 75 mg/dL (65-110); Potassium 3.7 mmol/L (3.4-5.0); Sodium 135 mmol/L (137-145)
[2023-08-09 15:56] LABS: INR 0.9; Partial Thromboplastin Time 25.6 Seconds (22.3-36.8); Prothrombin Time 12.9 Seconds (11.1-14.7)
[2023-08-09 16:20] LABS: Band Neutrophils Percent 2 % (0-6); Lymphocytes Absolute Manual 1.53 K/mm3 (1.1-4.5); Monocytes Absolute Manual 0.76 K/mm3 (0.1-0.90); Monocytes Percent Manual 3 % (3-9); Neutrophils Percent Manual 89 % (46-73); Platelet Estimate Adequate (Adequate); Total Cells Counted 100
[2023-08-09 16:21] LABS: Hypochromasia 1+; Schistocytes None Seen
--- NOTE | 2023-08-09 17:27 | PC.NURSE ---
This RN called to notify Dr. Amaro of new lab results including elevated WBC. verbalized understanding, states she does not wish to proceed with antibiotics at this time.
--- NOTE | 2023-08-09 17:36 | OBPPTRN ---
Patient transferred to post room #284 via bed with baby Maximino in crib at moms side. Support person guerrero Durán present. Oriented to unit, room, information board, rooming in, admission packet and security measures. Patient verbalizes understanding.
[2023-08-10] VITALS (15 sets, daily range): BP systolic 102–122; BP diastolic 50–74; PULSE 64–101; RESP 16–18; TEMP 36.4–37.4; O2SAT 99–100
--- NOTE | 2023-08-10 00:18 | PC.NURSE ---
Pt in bed, c/o sorenes to perineum, area swollen, ice pack applied after pericare. FC draining however urine is very dark and concentrated, this nurse hung bag of LR 125mls per hour and encouraged pt to increase po meds. Drainage from GEORGIE is minimal, fundus is firm at 1 above with no active bleeding, scant amount on peripad. Will continue to monitor.
[2023-08-10] MEDS: HYDROcodone/acetaminophen (*CRX) 5-325 MG TABLET 1 TAB PO ×2 (01:00→01:53)
--- NOTE | 2023-08-10 01:48 | PC.NURSE ---
Pt crying, upset stating she is very uncomfortable with perineal edema, FC and GEORGIE tubing. Ice pack applied with tucks and dermaplast. Spoke with Dr. Anna, order received for Axton 5/325mg po now, if not relief in 45 minutes given another tab. This comic writer informed pt of plan.
[2023-08-10] MEDS: ALPRAZolam (*CRX) 0.5 MG TABLET PO (03:34)
--- NOTE | 2023-08-10 05:08 | PC.NURSE ---
Pt states pain is much improved at this time. GEORGIE at 70 suction to wall- emptied 15mls red blood from canister.
[2023-08-10 05:22] LABS: Hematocrit 21.4 % (37.0-47.0)
[2023-08-10 05:27] LABS: Hemoglobin 6.5 g/dL (12.0-15.0)
--- NOTE | 2023-08-10 05:50 | PC.NURSE ---
Lab calling with critical lab HGB 6.5-reported this to Dr. Anna-ordered miek and gemini and will inform Dr. Amaro on next steps.
--- NOTE | 2023-08-10 06:05 | PC.NURSE ---
Spoke with Dr. Amaro, order received for 2 units RBC's to be administered for 0500 critical lab values.
--- NOTE | 2023-08-10 06:44 | PC.NURSE ---
GEORGIE canister output 110mls-canister marked for accurate measuring.
[2023-08-10] MEDS: SODIUM CHLORIDE 0.9% IV 250 ML 30 ML IV CONT (07:43)
--- NOTE | 2023-08-10 08:15 | PC.NURSE ---
Dr. Amaro deflated GEORGIE balloon at this time. Patient tolerated it well.
[2023-08-10] MEDS: MULTIVIT/MIN/PREN/FOL AC/IRON TABLET 1 TAB PO (08:25)
[2023-08-10] MEDS: IBUPROFEN 600 MG TABLET PO ×2 (08:25→18:50)
[2023-08-10] MEDS: POLYSACCHARIDE IRON COMPLEX 150 MG CAPSULE PO ×2 (08:25→17:33)
--- NOTE | 2023-08-10 11:36 | PC.NURSE ---
[id number] Introductions were made, then consulted with patient to assess needs related to . Discussed with mother her?plans to feed?her infant and the?experience so far. Resources provided for inpatient and outpatient services with the feeding sheet, mom/baby guide and name written on the communication board. Infant is in the nursery for MD assessment. Mother voiced understanding of information and will call for the next feeding which she shares it has now been 3 hours since the start of the last . Reviewed hand expression and mother demonstrated the skill well expressing multiple large drops of colostrum from each breast. [id number] Dr. Byrd is getting report and can go to mother for drinking at the breast. ID band checked, infant placed [id number] upright on mothers chest/breast and quickly demonstrated feeding cues. Mother latched infant to the right breast and began swallowing with great suck to swallow ratios demonstrating with long sucks of the lower jaw dropping down lower than the sucking rocking motion. We discussed mothers milk supply related to hypothyroidism, PCOS, IVF pregancy and PPH. Mother shared that she made a good milk supply for her other two children for 5 months, then supplemented with donor milk. Encouraged understanding of the benefits of skin to skin (demonstrating unwrapping infant and placing upright on her chest), stimulating with massage touch, changing positions to encourage wakefulness, how to watch for early feeding cues, responsive feeding, feeding on demand (aiming for 8-12 times in 24 hours, about every 2-3 hours), milk production, hand expression, building/maintaining a milk supply, duration of feeding, signs of adequate intake/output and how to record on the feeding sheet. Reviewed comfort measures of healing with a warm, wet washcloth to rinse breast, then leave open to air-dry, good handwashing when or touching the breast/nipples to prevent infection. Mother voiced understanding of skin to skin, stimulating with massage touch, responsive feedings, hand expressed colostrum, talking to infant to encourage if it has been 2 -2.5 hours since the start of the last , to call if infant does not latch, or if there is discomfort with . Resources used for education were facilitated with the visual educational handouts/ tool/mom and baby guide. Inpatient/outpatient resources provided with feeding sheet, name written on the communication board, and the mom/baby guide. Parents voiced understanding of information, demonstrated learning and will call if there is a request for assistance. Reported to the Primary RN.
[2023-08-10] MEDS: CLINDAMYCIN 900 MG/D5W 50 ML 900 MG/50 ML PIGGYBACK 50 MG IVPB ×2 (12:06→21:10)
--- NOTE | 2023-08-10 12:48 | P.PNOB_ITS ---
OB - PN: Subj Subjective Date/time seen: 08/10/23 12:48 Interval history: Her pain is improved since the Carmen balloon was decreased. baby status: doing well and nursing well feeding status: exclusively breast feeding OB - PN: Obj Data Labs 08/10/23 04:04 08/09/23 15:34 Labs: Laboratory Results - last 24 hr 08/09/23 08/09/23 08/10/23 08:00 15:34 04:04 WBC 25.5 H RBC 4.36 Hgb 10.7 L 6.5 L* D Hct 34.6 L 21.4 L MCV 79.4 L MCH 24.5 L MCHC 30.9 L RDW 14.4 Plt Count 371 MPV 9.5 Immature Gran % (Auto) Not Reportable Neut % (Auto) Not Reportable Lymph % (Auto) Not Reportable [place] % (Auto) Not Reportable Eos % (Auto) Not Reportable Baso % (Auto) Not Reportable Lymph # (Auto) Not Reportable [place] # (Auto) Not Reportable Eos # (Auto) Not Reportable Baso # (Auto) Not Reportable Abs Immat Gran (auto) Not Reportable Absolute Neuts (auto) Not Reportable Absolute Nucleated RBC Not Reportable Total Counted 100 Neutrophils % (Manual) 89 H Band Neutrophils % 2 Lymphocytes % (Manual) 6.0 L Monocytes % (Manual) 3 Nucleated RBC % Not Reportable Abs Neuts (Manual) 23.20 H Abs Lymphs (Manual) 1.53 Abs Monocytes (Manual) 0.76 Platelet Estimate Adequate Hypochromasia 1+ Schistocytes None seen PT 12.9 INR 0.9 APTT 25.6 Sodium 135 L Potassium 3.7 Chloride 109 H Carbon Dioxide 20 L Anion Gap 6 BUN 8 D Creatinine 0.60 L Estim Creat Clear Calc 126 Estimated GFR > 60 Glucose 75 Calcium 8.9 Total Bilirubin 0.4 AST 21 ALT 10 Alkaline Phosphatase 236 H Total Protein 6.0 L Albumin 3.4 L Blood Type B Positive Antibody Screen Negative Crossmatch See Detail OB - PN A/P Assessment and Plan (1) Vaginal delivery: Code(s): O80 - Encounter for full-term uncomplicated delivery Status: Acute Assessment and Plan: day 1 had hemorrhage. Dated device was removed bleeding minimal. Given IV antibiotics prophylaxis. Continue routine care. (2) anemia: Code(s): O90.81 - Anemia of the puerperium Status: Acute Assessment and Plan: Receiving 2 units of packed red blood cells. Asymptomatic. Plan day: 1 Plan: routine care Comments: Patient doing well. Time Spent With Patient Time: Total time spent is greater than 50% in coordination of care (as documented) at patient's floor/unit and/or counseling patient: Exam Psych: Affect: normal affect Other: Abd: fundus firm below umbilicus, nontender Perineum: healing, mild labial swelling bilateral Ext: nontender
--- NOTE | 2023-08-10 13:55 | WPDANLDPN2 ---
Anes-Prog Note L&D Date/Time: 08/10/23 13:55 Comfortable throughout: labor and delivery Neuraxial method: epidural Epidural/Spinal procedure site: clean & non-tender Neuro status: Neuro function grossly intact. Cardiovascular status: normal Respiratory status: normal Airway patency: baseline Mental status: baseline Post-Op hydration status: normal Vital Signs: Last Vital Signs Temp 36.8 C 08/10/23 13:28 Pulse 70 08/10/23 13:28 Resp 16 08/10/23 13:28 BP 111/71 08/10/23 13:28 Pulse Ox 100 08/10/23 13:28 O2 Del Method Room Air 08/09/23 20:30 Pain score (VAS): 04/14 I/O: Intake & Output 08/09/23 08/10/23 08/10/23 23:59 07:59 15:59 Intake Total 1600 1000 754 Output Total 410 1050 300 Balance 1190 -50 454 Post-procedural complaints: none Patient feedback: Patient satisfied with anesthetic care.
--- NOTE | 2023-08-10 14:02 | PC.NURSE ---
[id number] Purposefully rounded to assess for needs. Mother shared that infant is in the nursery for a bath and testing. last breastfed at 1320 for 10 minutes. Encouraged mother to place [id number] and offer the breast when infant returns to her along with when and how to call for a latch assessment. Mother was encouraged to call if infant doesn't wake to breastfeed, the latch is painful or to celebrate a great latch and to confirm swallows. mother is confident of her skills and voices understanding of the information.
--- NOTE | 2023-08-10 14:58 | PC.NURSE ---
[id number] Purposefully rounded to assess for needs. is [id number] upright on mother's chest/breast. Visitor enters the room. Mother shared she will attempt to breastfeed at 1510. Reviewed habits that will increase her milk supply and decrease infant's stress to improve 's weight, voids, and stools. Mother voiced understanding of the information along with how and when to call for services.
[2023-08-10 17:55] LABS: Hematocrit 28.8 % (37.0-47.0); Hemoglobin 9.4 g/dL (12.0-15.0)
[2023-08-11] MEDS: IBUPROFEN 600 MG TABLET PO ×2 (01:25→08:05)
[2023-08-11] MEDS: CLINDAMYCIN 900 MG/D5W 50 ML 900 MG/50 ML PIGGYBACK 50 MG IVPB (04:40)
[2023-08-11] MEDS: POLYSACCHARIDE IRON COMPLEX 150 MG CAPSULE PO (08:05)
[2023-08-11] MEDS: MULTIVIT/MIN/PREN/FOL AC/IRON TABLET 1 TAB PO (08:05)
[2023-08-11] MEDS: DOCUSATE SODIUM 100 MG CAPSULE PO (08:05)
[2023-08-11 08:25] VITALS: BP 113/72; PULSE 68; RESP 16; TEMP 36.8; O2SAT 100
--- NOTE | 2023-08-11 11:32 | PM.OBPNVD ---
OB - PN: Subj Subjective Date/time seen: 08/11/23 11:32 Interval history: Lochia light. No lightheadedness or dizziness. Patient comments: pain well controlled, tolerating diet and other (Decreasing lochia.) baby status: doing well and nursing well feeding status: exclusively breast feeding OB - PN: Obj Data Labs 08/10/23 17:42 08/09/23 15:34 Labs: Laboratory Results - last 24 hr 08/09/23 08/10/23 08:00 17:42 Hgb 9.4 L Hct 28.8 L Crossmatch See Detail OB - PN A/P Plan day: 2 Plan: discharge home and other Comments: Patient doing well. Follow up 2 weeks. Discharge instructions provided. Time Spent With Patient Time: Total time spent is greater than 50% in coordination of care (as documented) at patient's floor/unit and/or counseling patient: Time with patient: less than 15 minutes Exam Psych: Affect: normal affect Other: Abd: fundus firm below umbilicus, nontender Perineum: healing Ext: nontender
--- NOTE | 2023-08-11 16:39 | PC.NURSE ---
[id number] Mother verbalizes she is able to independently latch with appropriate positioning and alignment. She denies any nipple discomfort and is responsively . is currently meeting outcomes for weight, output, jaundice, blood sugar and feeding frequencies of 8-12 times in 24 hours. Reviewed concerns with milk production related to QBL, hypothyroidism, and PCOS. Mother shared she has milk for her infant from pumping and there's milk in a bottle on the night stand. Mother is not using the hospital pump as we do not have the correct flange fit for her at this time. Mother declines any additional assistance or education at this time. Mother is encouraged to call for assistance if her doesn?t latch, pain with latching, questions or concerns. Mother voiced understanding of information shared along with the mom/baby guide for an additional resource.
[2023-08-12 07:45] VITALS: BP 102/76; PULSE 89; RESP 20; TEMP 36.7; O2SAT 99
--- NOTE | 2023-09-01 17:04 | PM.OBDSVD ---
DS: Admitting Diagnosis Discharge Date 08/11/23 Admitting Diagnosis Rupture of membranes DS: Discharge Diagnosis Discharge Diagnosis (1) Vaginal delivery: Code(s): O80 - Encounter for full-term uncomplicated delivery Status: Acute (2) hemorrhage: Code(s): O72.1 - Other immediate hemorrhage Status: Acute (3) anemia: Code(s): O90.81 - Anemia of the puerperium Status: Acute OB - DS: Summary Hospital Course Hospital Course: She was admitted for spontaneous rupture of membranes in early labor. She received Pitocin augmentation and had a vaginal delivery. Delivery complicated by hemorrhage which resolved with Carmen insertion. She had a follow up hemoglobin the following morning which was 6.1 and she was recommended for a blood transfusion of 2 units of PRBCs which she received. Her bleeding remained minimal after the Carmen was removed. Her hemoglobin after the blood transfusion was 9.4 and 28.8. She did not have any hypovolemic symptoms. She was taking oral iron. Baby was doing well. She had adequate pain control. She was ambulating well. She was discharged to home on day 2. OB Procedures : NST and Ultrasound OB Procedures Intrapartum: Spontaneous Vag Delivery and Other (Carmen insertion) OB Procedures: : Transfusion and Antibiotics (prophylactic) Peripartum Data Delivery Method: Natural Vaginal Laceration Description: Perineal - 1st Degree complications: transfusion and uterine atony Status at Discharge Functional status at discharge: independent ambulation Time Spent with Patient Time attestation: Total time spent providing and/or coordinating discharge services: Exam Const: General: cooperative Orientation/consciousness: oriented to person, oriented to place and oriented to time HENMT: Face/Nose/Sinus: Normal external nose present Eyes: General: appearance normal, both eyes and all related structures Resp: Effort & Inspection: normal respiratory effort GI: Inspection: normal to inspection Skin: General skin exam: normal color Neuro: General: oriented to person, oriented to place and oriented to time Extrem: General: normal to inspection and no calf tenderness Psych: Appearance: grossly normal Mental Status: mental status grossly normal Discharge Plan Discharge Attending physician on discharge: Pepe Amaro Consulting providers: Jeanne Juarez Discharging Clinician: Pepe Amaro Anticipated Discharge Date/Time: 08/11/23 15:38 Patient Disposition: Home, Self-Care Activity: may shower and pelvic rest Diet: regular Discharge Instructions: Education: Mom and Baby Guide Given to: Mother Follow-Up: Call your delivering provider's office for an appointment to be seen in: Call for appointment Mom and baby should come to the [facility] for the follow-up appointment. Appointment Date/Time: August 12, 2023 at 8:00 am What to expect at your follow-up visit: Physical Assessment Call [phone] if you are unable to keep your appointment time. BREAST CARE: * Wear a snug supportive bra. * For engorgement discomfort: Breast Feeding: * Apply warm moist washcloths * Express milk as needed to relieve engorgement * Wear loose clothing * For sore nipples: * Identify correct latch-on * Apply warm moist washcloths before and after nursing * Air dry nipples after nursing * May apply Lansinoh cream to nipples EPISIOTOMY/PERINEAL CARE: * Until bleeding stops, use your daniel bottle after urinating * Change your pad frequently throughout the day * You may take sitz baths several times a day (fill your bathtub with warm water and soak for 20 minutes.) Do NOT bathe in the water * No tub baths until seen by your physician - You may shower ACTIVITY: * Rest as much
== END 2023-08-11 16:20 | disposition home or self-care (01) | DRG 807 ==
LOC: ANHLDR 07:43 → ANHOB2 17:06
PROVIDERS: Admitting Provider Obstetrics & Gynecology; Visit Provider Obstetrics & Gynecology
DX: O99.284 Endocrine, nutritional and metabolic diseases complicating childbirth (principal); Z37.0 Single live birth; Z3A.39 39 weeks gestation of pregnancy; E03.9 Hypothyroidism, unspecified; O69.81X0 Labor and delivery complicated by cord around neck, without compression, not applicable or unspecified; O70.0 First degree perineal laceration during delivery
CPT/HCPCS: 36415; 36430; 80053; 84112; 85014; 85018; 85025; 85610; 85730; 86592; 86850; 86900; 86901; 86923; A9270; J2405; J2590; J2795; J3010; J7050; J7120; P9016